=== PATIENT | male | born 1935 | race Caucasian/White ===

== ENCOUNTER → 2025-05-13 11:56 | Outpatient (REF) | payer MEDICARE, SELFPAY | LOC: DHSLP 11:56 | PROVIDERS: ATTENDING PHYSICIAN Internal Medicine Critical Care Medicine; FAMILY PHYSICIAN Family Medicine | DX: G47.33 Obstructive sleep apnea (adult) (pediatric) (principal) | CPT/HCPCS: 95800 ==

== ENCOUNTER → 2025-08-17 14:03 | Outpatient (REF) | payer MEDICARE, SELFPAY | LOC: RAD 14:03 | PROVIDERS: ATTENDING PHYSICIAN Internal Medicine Interventional Cardiology; FAMILY PHYSICIAN Family Medicine | DX: I48.91 Unspecified atrial fibrillation (principal) | CPT/HCPCS: 75572; Q9967 ==

== ENCOUNTER 2025-11-11 19:30 | Inpatient (IN) | payer MEDICARE, SELFPAY ==
[2025-11-11] VITALS (10 sets, daily range): BP systolic 119–139; BP diastolic 55–84; PULSE 2; BMI 32.3
[2025-11-11 16:33] LABS: Hematocrit 27.7 % (39.0-52.0); Hemoglobin 8.9 g/dL (13.0-18.0); Mean Corp Hgb Conc. 32.1 g/dL (33.0-37.0); Mean Corpuscular Volume 95.2 fL (80.0-94.0); Nucleated Red Blood Cells % 0 % (-); Platelet Count 148 10^3/uL (130-400); Red Cell Dist. Width 15.4 % (11.5-14.5)
[2025-11-11 16:47] LABS: INR 1.64; PT 19.1 Sec (11.4-14.6)
--- NOTE | 2025-11-11 16:48 | ED.GENMED ---
History of Present Illness
<Lauryn Enciso PA-C - Last Filed: 11/11/25 19:21>
General
Chief Complaint: Rectal Bleeding
Time Seen by Provider: 11/11/25 15:26
History of Present Illness
History of Present Illness:
Calvin is a 89M with past medical history of A-fib on Eliquis, hypertension, hematuria who presents with new onset of melena that began last evening and has continued throughout the day today. Denies any associated abdominal pain, nausea, vomiting,
lightheadedness, dizziness. Last colonoscopy was less than 2 years ago and showed internal hemorrhoids.
Past History
<Lauryn Enciso PA-C - Last Filed: 11/11/25 19:21>
Past History
ED Past Medical History: Arrthythmia (Atrial fib), Asthma, GERD, HTN, Hypercholesterolemia, Other (pulmonary nodule stable from [id number], pancreatic pseudocyst, prostatic nodule, DAISHA) and Other (hernia)
ED Past Surgical History: Cardiac (CABG 1993), Orthopedic (Right total knee, Bilateral hip replacements, rotator cuff repair), Urological (prostatectomy) and Other (herniorrhaphy)
Social History
Tobacco: Non-smoker
Alcohol: Occasional
Personal:
Living: with family
Family History
Family History: Other (reviewed and non-contributory)
Phy Exam
<Lauryn Enciso PA-C - Last Filed: 11/11/25 19:21>
General Physical Exam
General Presentation: well appearing and no apparent distress
General Skin: warm and dry
General Habitus: normal
General Mental: alert
General Hydration: appears well hydrated
ENT Exam
ENT Exam: EOMI, pharynx normal, neck supple and normocephalic
Eye Exam
Eye Exam: PERRL, cornea clear and conjunctiva normal
Cardiovascular Exam
Cardiovascular Exam: regular rate/rhythm, no edema, no murmur and normal peripheral pulses
Pulmonary Exam
Pulmonary Exam: lungs clear, no respiratory distress, no rales, no crackles, no rhonchi, no stridor, no wheezing and no cough
Gastrointestinal Exam
Gastrointestinal Exam: normal bowel sounds, non tender, soft, no organomegaly, no pulsatile mass and non distended
Neurological Exam
Neurological Exam: alert, oriented x3, no motor deficits and speech normal
Musculoskeletal Exam
Musculoskeletal Exam: full ROM and no edema
Skin Exam
Skin Exam: normal color, warm/dry, no rash and no petechia
Psychiatric Exam
Psychiatric Exam: normal mood/affect
Course
<Lauryn Enciso PA-C - Last Filed: 11/11/25 19:21>
Orders/Labs/Results
Orders:
Orders
11/11/25 10:23
Electrocardiogram (*1) Urgent
Reason for Study: Abdominal Pain
EKG- Treatment ONCE
11/11/25 15:39
Stool for Occult Blood Routine
11/11/25 16:21
Type And Crossmatch [Type+Screen] Urgent
Complete Blood Count/With Diff Urgent
Comprehensive Metabolic Panel Urgent
Ferritin Urgent
Comment: ADD ON
Folate Urgent
Comment: ADD ON
Iron Urgent
Comment: ADD ON
Lipase Urgent
PT/INR [Prothrombin Time] Urgent
Total Iron Binding Urgent
Comment: ADD ON
Vitamin B12 Urgent
Comment: ADD ON
11/11/25 17:10
Pantoprazole [Protonix IV] 80 mg IV NOW STA
11/11/25 18:03
Add On- LAB Urgent
Tests Added?: troponin
11/11/25 18:30
Admit/Transfer Patient As Directed
Co-Sign Provider:
Level of Care: Inpatient admission
Assign to:: Telemetry
Physician / Group: merlin green
Diagnosis: lower gi bleed , anemia, new Rbbb
Reason for Telemetry: Arrhythmia
Date to Stop Telemetry: 11/14/25
Time to Stop Telemetry: 11:00
Reason for Hospitalization: lower gi bleed , anemia, new Rbbb
Expected length of stay greater than two midnights?: Yes
ELOS- Estimated Length of Stay in days: 3
I certify the patient meets the requirements for IP care: Yes
Code Status As Directed
Resuscitation Status: Full Code
11/11/25 18:34
PRN Pain Medication Management As Directed
May give lesser potent ordered pain med per pt: Yes
preference::
Protocol:: Medication orders for pain may be administered in a
manner that supports deferring to patient preference
when the pt is:
- Requesting an ordered lesser potent pain medication.
Least to most potent pain medications are defined
as: acetaminophen < NSAID < tramadol < opioids
(morphine, oxycodone, hydromorphone).
- Requesting a lesser dose of the same medication IF
ORDERED.
- Requesting a less intrusive route of administration
if both routes are prescribed by the provider (PO <
IV).
11/11/25 18:40
CARDIOLOGY CONSULT Routine
Consulting Provider: Gurjit Almanza
Was physician already notified: Yes
Reason for consult: new Rbbb, chroni lbbb ekg changes anemia, gi bleed
GASTROINTESTINAL CONSULT Routine
Consulting Provider: Nelson Johnson
Was physician already notified: Yes
Reason for consult: new Rbbb, chroni lbbb ekg changes anemia, gi bleed
11/11/25 18:42
Add On- LAB Urgent
Tests Added?: iron ferritin tibc folate b12
11/11/25 19:04
Troponin I Urgent
Comment: MUST BE COLLECTED. NO GREEN TOP IN LAB
11/14/25 11:00
DC Protocol for Telemetry ONCE
Abnormal Lab Results
11/11/25
16:21
WBC 3.7 L 10^3/uL
(4.8-10.8)
RBC 2.91 L 10^6/uL
(4.70-6.10)
Hgb 8.9 L g/dL
(13.0-18.0)
Hct 27.7 L %
(39.0-52.0)
MCV 95.2 H fL
(80.0-94.0)
MCHC 32.1 L g/dL
(33.0-37.0)
RDW 15.4 H %
(11.5-14.5)
Absolute Lymphs (auto) 0.7 L 10^3/uL
(1.2-3.4)
Lymphocytes % 19.4 L %
(20.5-51.1)
Monocytes % 9.9 H %
(1.7-9.3)
PT 19.1 H Sec
(11.4-14.6)
11/11/25 16:21
11/11/25 16:21
Vital Signs
Initial and Last Documented VS:
Initial Vital Signs
Temp Pulse Resp BP Pulse Ox
37.2 C 60 16 119/83 99
11/11/25 10:23 11/11/25 10:23 11/11/25 10:23 11/11/25 10:23 11/11/25 10:23
Last Documented Vital Signs
Temp Pulse Resp BP Pulse Ox
36.4 C 68 19 130/61 100
11/11/25 17:42 11/11/25 17:30 11/11/25 17:15 11/11/25 16:08 11/11/25 17:30
<Ed Simmons MD - Last Filed: 11/11/25 17:11>
Orders/Labs/Results
Orders:
Orders
11/11/25 10:23
Electrocardiogram (*1) Urgent
Reason for Study: Abdominal Pain
EKG- Treatment ONCE
11/11/25 15:39
Stool for Occult Blood Routine
11/11/25 16:21
Type And Crossmatch [Type+Screen] Urgent
Complete Blood Count/With Diff Urgent
Comprehensive Metabolic Panel Urgent
Ferritin Urgent
Comment: ADD ON
Folate Urgent
Comment: ADD ON
Iron Urgent
Comment: ADD ON
Lipase Urgent
PT/INR [Prothrombin Time] Urgent
Total Iron Binding Urgent
Comment: ADD ON
Vitamin B12 Urgent
Comment: ADD ON
11/11/25 17:10
Pantoprazole [Protonix IV] 80 mg IV NOW STA
11/11/25 18:03
Add On- LAB Urgent
Tests Added?: troponin
11/11/25 18:30
Admit/Transfer Patient As Directed
Co-Sign Provider:
Level of Care: Inpatient admission
Assign to:: Telemetry
Physician / Group: merlin green
Diagnosis: lower gi bleed , anemia, new Rbbb
Reason for Telemetry: Arrhythmia
Date to Stop Telemetry: 11/14/25
Time to Stop Telemetry: 11:00
Reason for Hospitalization: lower gi bleed , anemia, new Rbbb
Expected length of stay greater than two midnights?: Yes
ELOS- Estimated Length of Stay in days: 3
I certify the patient meets the requirements for IP care: Yes
Code Status As Directed
Resuscitation Status: Full Code
11/11/25 18:34
PRN Pain Medication Management As Directed
May give lesser potent ordered pain med per pt: Yes
preference::
Protocol:: Medication orders for pain may be administered in a
manner that supports deferring to patient preference
when the pt is:
- Requesting an ordered lesser potent pain medication.
Least to most potent pain medications are defined
as: acetaminophen < NSAID < tramadol < opioids
(morphine, oxycodone, hydromorphone).
- Requesting a lesser dose of the same medication IF
ORDERED.
- Requesting a less intrusive route of administration
if both routes are prescribed by the provider (PO <
IV).
11/11/25 18:40
CARDIOLOGY CONSULT Routine
Consulting Provider: Gurjit Almanza
Was physician already notified: Yes
Reason for consult: new Rbbb, chroni lbbb ekg changes anemia, gi bleed
GASTROINTESTINAL CONSULT Routine
Consulting Provider: Nelson Johnson
Was physician already notified: Yes
Reason for consult: new Rbbb, chroni lbbb ekg changes anemia, gi bleed
11/11/25 18:42
Add On- LAB Urgent
Tests Added?: iron ferritin tibc folate b12
11/11/25 19:04
Troponin I Urgent
Comment: MUST BE COLLECTED. NO GREEN TOP IN LAB
11/14/25 11:00
DC Protocol for Telemetry ONCE
Abnormal Lab Results
11/11/25
16:21
WBC 3.7 L 10^3/uL
(4.8-10.8)
RBC 2.91 L 10^6/uL
(4.70-6.10)
Hgb 8.9 L g/dL
(13.0-18.0)
Hct 27.7 L %
(39.0-52.0)
MCV 95.2 H fL
(80.0-94.0)
MCHC 32.1 L g/dL
(33.0-37.0)
RDW 15.4 H %
(11.5-14.5)
Absolute Lymphs (auto) 0.7 L 10^3/uL
(1.2-3.4)
Lymphocytes % 19.4 L %
(20.5-51.1)
Monocytes % 9.9 H %
(1.7-9.3)
PT 19.1 H Sec
(11.4-14.6)
11/11/25 16:21
11/11/25 16:21
Vital Signs
Initial and Last Documented VS:
Initial Vital Signs
Temp Pulse Resp BP Pulse Ox
37.2 C 60 16 119/83 99
11/11/25 10:23 11/11/25 10:23 11/11/25 10:23 11/11/25 10:23 11/11/25 10:23
Last Documented Vital Signs
Temp Pulse Resp BP Pulse Ox
36.4 C 68 19 130/61 100
11/11/25 17:42 11/11/25 17:30 11/11/25 17:15 11/11/25 16:08 11/11/25 17:30
<Lauryn Enciso PA-C - Last Filed: 11/11/25 19:21>
MDM/Problems Addressed
Differential Diagnosis Includes:
Bedside Hemoccult positive. Hemoglobin 8.6 which is relatively stable from his last check as an outpatient on 10/31 when it was 9.2. Patient remains hemodynamically stable with without any complaints of pain. However given new onset of GI bleeding
on anticoagulation will admit to hospital service for further workup and GI evaluation.
<Lauryn Enciso PA-C - Last Filed: 11/11/25 19:21>
*Pulse Oximetry
SaO2: 99
Oxygen Mode of Delivery: Room air
Patient hypoxic: no
*Critical Care Note
Total Time (30-74mins, 75-104mins- exclusive of procedures): Not Applicable
ED Attending Note
<Lauryn Enciso PA-C - Last Filed: 11/11/25 19:21>
-
Portions of this chart may have been created with voice recognition software.� Occasional wrong word or��sound alike� substitutions may have occurred due to the inherent limitations of voice recognition software.
<Ed Simmons MD - Last Filed: 11/11/25 17:11>
ED Attending Note
Patient seen and examined by attending physician: Yes
ED Attending Note:
I have seen and evaluated the patient with a [id number] encounter. I have spoken to the advance practicer provider and involved in the medical history, the physical exam, medical decision making.
Evaluation and management service: agree unless noted differently below.
Results interpretation: agree unless noted differently below.
Focused HPI: 89-year-old male with a past medical history as noted significant for A-fib on Xarelto who presents to the ER for evaluation of rectal bleeding. Patient reports onset of symptoms yesterday of dark black to maroon stools. He says he
had 1 episode last night, woke up with stool on him this morning and had another episode this morning so at least 3 episodes of rectal bleeding. He feels a bit weak but denies shortness of breath or lightheadedness, denies any chest pain. He has
not had any vomiting. It sounds like he had a history of some bright red blood per rectum in the distant past and was seen at [facility] and he says that he has chronic hematuria and is planning to get a watchman so that he can come off of the
Xarelto. He says his last colonoscopy was about a year ago, cannot recall prior endoscopies.
Physical exam: Awake and alert, nontoxic. Vital signs are normal. Abdomen nontender. On rectal exam he has black stool Hemoccult positive.
Medical Decision Makin-year-old male presents with rectal bleeding�dark stools times least 3 episodes. He is on Xarelto for history of A-fib. He is hemodynamically stable. Hemoccult positive here. No heavy bleeding here. His hemoglobin is
8.9 today which is essentially stable. Will plan to start PPI. Hold Xarelto for now but no indication for emergent reversal. Monitor bleeding and trend hemoglobin. Admit for continued care. PA discussed with hospitalist.
Discharge Plan
Departure
Patient Disposition: Admit
Date of Disposition: 11/11/25
Time of Disposition: 16:57
Presentation/result/management discussed w/ accepting MD/DO: Hospitalist
Discharge Problem:
Melena, Acute GI bleeding, Anemia
Prescriptions:
No Action
montelukast 10 MG tablet
10 mg PO HS
Xarelto 20 MG tablet
20 mg PO QPM
Dupixent Pen 300 MG/2 ML pen injector
300 mg SC Q2W
duloxetine 30 mg capsule,delayed release(DR/EC)
30 mg PO DAILY
atorvastatin 40 mg tablet
40 mg PO QPM
lisinopril [Zestril] 2.5 mg tablet
2.5 mg PO QPM
pantoprazole [Protonix] 20 mg Tablet,Delayed Release (Dr/Ec)
20 mg PO DAILY
ferrous sulfate 325 mg (65 mg iron) Tablet
325 mg PO DAILY
folic acid 1 mg Tablet
1 mg PO DAILY
furosemide [Lasix] 20 mg Tablet
40 mg PO BID
Breztri Aerosphere 160-9-4.8 mcg/actuation Hfa Aerosol Inhaler
2 inh INHALATION R BID
metoprolol succinate 100 mg tablet extended release 24 hr
100 mg PO BID
Referrals:
Jason Irwin MD [Family Provider, Family Practice]
Interventions
Interventions:
*General Assessment Last Done: 11/11/25 16:10
*Neglect/Abuse Screening Last Done: 11/11/25 10:23
*ED COVID-19 Vaccine History Last Done: 11/11/25 16:10
*ED Influenza Vaccine History Last Done: 11/11/25 16:10
[facility] Fall Risk Assessment Tool Last Done: 11/11/25 16:12
*Risk Screen - Suicide (C-SSRS) Last Done: 11/11/25 10:23
RD-Dxglub-Zwgqvysary Assessment Last Done: 11/11/25 16:30
ED- Cardiac Assessment Last Done: 11/11/25 16:30
ED- Pulmonary Assessment Last Done: 11/11/25 16:30
Discharge Date and Time
Print Language: HEBREW
[2025-11-11 16:56] LABS: ALT (SGPT) 10 U/L (0-50); AST (SGOT) 17 U/L (17-59); Albumin 3.5 g/dl (3.5-5.0); Alkaline Phosphatase 103 U/L (38-126); Blood Urea Nitrogen 19 mg/dl (9-20); Calcium 9.0 mg/dl (8.4-10.2); Carbon Dioxide 26 mmol/L (22-30); Chloride 106 mmol/L (98-107); Estimated Creatinine Clearance 58 ml/min; Glucose 96 mg/dl (70-99); Lipase 37 U/L (23-300); Potassium 4.2 mmol/L (3.5-5.1); Sodium 138 mmol/L (135-145); Total Protein 6.8 g/dl (6.3-8.2); eGFR > 60.00
[2025-11-11] MEDS: PROTONIX IV 80 MG IV (17:29)
--- NOTE | 2025-11-11 17:53 | HPS.HSE ---
Family Physician
-
Family Physician: Jason Irwin
Chief Complaint
-
black stool x2 days
History of Present Illness
89-year-old male from [facility] where he moved in on 11/12/2025. He reports he has had rectal bleeding x 2 days black in color. He is on Xarelto for A-fib. The pt States he had Some rectal bleeding about 1 year ago that was
contributed to hemorrhoids. He denies any recent colonoscopy. The patient denies chest pain, palpitations, shortness of breath, dizziness, headache, fever, chills, abdominal pain, nausea, vomiting, diarrhea, urinary symptoms. Medical history
includes CHF, CAD/CABG 1993, HLD, asthma, ex-smoker, sleep apnea/CPAP 08/31, GERD, osteoarthritis, radical prostatectomy 1996, chronic bilateral leg lymphedema
Medical History
Past Medical History
Past Medical History: Reports Other (atrial fibrillation on Xarelto, CAD, CHF, hyperlipidemia, GERD, COPD, sleep apnea on BIPAP, history of prostate CA with prostatectomy)
Past Surgical History: Reports Orthopedic (hip replacement) and Urological ( prostatectomy)
Social History
Tobacco: Non-smoker
Alcohol: None
Personal:
Living: With Family
Family History
Family History: Not pertinent
Allergies / Home Medications
Allergies reflects when Allergies were last updated in [employer].
Home Medications with original date entered in [employer]
Allergy/Medication List:
Allergies
Allergy/AdvReac Type Severity Reaction Status Date / Time
acetaminophen (From Tylenol) Allergy Itching Verified 11/11/25 16:05
morphine (Morphine) Allergy massive Verified 11/11/25 10:22
outbreak
of hives &
itching
Home Medications
montelukast 10 mg tablet 10 mg PO HS Lung/breathing issues 01/02/12
dupilumab 300 mg/2 mL subcutaneous pen injector (Dupixent) 300 mg SC Q2W ASTHMA 06/07/21
rivaroxaban 20 mg tablet (Xarelto) 20 mg PO QPM Blood clot prevention/tx 06/07/21
duloxetine 30 mg capsule,delayed release 30 mg PO DAILY Mental Health/Anxiety 06/27/22
atorvastatin 40 mg tablet 40 mg PO QPM High cholesterol 01/24/23
lisinopril 2.5 mg tablet (Zestril) 2.5 mg PO QPM Blood pressure 01/24/23
budesonide 160 mcg-glycopyr 9 mcg-formot 4.8 mcg/actuation HFA inhaler (Breztri Aerosphere) 2 inh inhalation R BID Lung/Breathing Issues 11/11/25
ferrous sulfate 325 mg (65 mg iron) tablet 325 mg PO DAILY Supplement 11/11/25
folic acid 1 mg tablet 1 mg PO DAILY Supplement 11/11/25
furosemide 20 mg tablet (Lasix) 40 mg PO BID Fluid Retention/Swelling 11/11/25
metoprolol succinate 100 mg tablet,extended release 24 hr 100 mg PO BID Heart Disease/Condition 11/11/25
pantoprazole 20 mg tablet,delayed release (Protonix) 20 mg PO DAILY Gastrointestinal Issue 11/11/25
Review of Systems
-
History Source: Patient
A 12 point ROS was completed and negative except as noted: Yes
Constitutional: Denies Fever or Chills
EENT: Denies Sore Throat or Runny Nose
Respiratory: Denies Cough or Trouble Breathing
Cardiac: Denies Chest Pain, Palpitations or Syncope
Abdomen/GI: Reports Black Stools (x 2 days ); Denies Abdominal Pain, Nausea, Vomiting, Diarrhea, Constipated or Bloody Stools
: Denies Dysuria, Frequency, Flank Pain or Incontinence
Musculoskeletal: Reports Edema (bilat leg Lymphedema +2 ); Denies Joint Pain
Skin: Denies Itching or Rash
Neurological: Denies Dizzy, Headache or Weakness
Endocrine: Reports No Symptoms
Hematologic/Lymphatic: Reports No Symptoms
Psych: Reports Calm
Physical Exam
Vital Signs
Vital Signs
Temp Pulse Resp BP Pulse Ox
97.6 F 68 19 130/61 100
11/11/25 17:42 11/11/25 17:30 11/11/25 17:15 11/11/25 16:08 11/11/25 17:30
Physical Exam
General: No Fever or Chills
HEENT: NormoCephalic, Anicteric, PERRLA, [place] Conjunctivae and No Ptosis
Respiratory: Clear
Cardiac: S1/S2, Murmur (sys 2/6 murmur) and Peripheral Edema (bilat legs +2 from knees to feet ); No Rub or Gallop
Breast: Deferred by me
GI: Soft, Non Tender, Non Distended, Normal Bowel Sounds and No Hepatosplenomegaly
Rectal: Hem Positive (per ER provider)
Genito-urinary: Deferred by me
Musculoskeletal: No Clubbing, No Cyanosis, Edema, Left Lower Extremity (bilat legs +2 from knees to feet ) and Edema, Right Lower Extremity (bilat legs +2 from knees to feet ); No Edema, Left Upper Extremity or Edema, Right Upper Extremity
Skin: Warm and Dry; No Rash
Neuro: AO x 3, No Motor Deficits, Nonfocal/grossly intact, Cranial Nerves Intact and No Sensory Deficits; No Slurred Speech, Facial Droop, Tremors or Sedated
Psych: Calm
Laboratory Results
-
11/11/25 16:21
11/11/25 16:21
Laboratory Results
PT 19.1 Sec (11.4-14.6) H 11/11/25 16:21
INR 1.64 11/11/25 16:21
Total Bilirubin 0.7 mg/dl (0.2-1.3) 11/11/25 16:21
AST 17 U/L (17-59) 11/11/25 16:21
ALT 10 U/L (0-50) 11/11/25 16:21
Alkaline Phosphatase 103 U/L (38-126) 11/11/25 16:21
Troponin I Cancelled 11/11/25 10:23
Lipase 37 U/L (23-300) 11/11/25 16:21
Data Reviewed
-
Lab Data: Labs Reviewed by me
Impression/Plan
-
Impression/plan:
Admit to telemetry
#Rectal bleeding with anemia concern for lower GI bleed
#GERD
#Hemorrhoids 1 year ago with rectal bleeding no colo
Bedside Hemoccult positive ER
Hgb 8.9 was 9.2 on outpatient labs on 10/31
-Type and screen
-blood consent obtained and scanned to chart
-Consult GI
-protonix 80 mg given in ER
- Hold Xarelto
npo except sips and meds
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
#Cardiac murmur
No current symptoms
-check troponin
- check Echo
- consult [facility] cardiology
-- get old records from [facility]
#A-fib- permanent
- Hold Xarelto
-Continue metoprolol succinate 100 mg twice daily with hold parameters
- EKG : Afib 73 bpm, Bifasciular block qtc 511 ms T wave inversion anterior leads
#HTN
BP 130/61
cont Metoprolol succ 100 mg bid, Lasix 80 mg bid
hold , Lisinopril 2.5 mg qpm
#CHF with chronic bilateral leg lymphedema
I/o daily weight
cont Lasix 80 mg bid
#CAD/CABG 1993
- cont BB, Statin
#Asthma
cont dupixent q2 weeks , Breztri inhaler, Singulari 10 mg hs
#Anxiety
cont Duloxetine 30 mg daily
#ex-smoker
#Sleep apnea/CPAP 08/31
Other PMH:
osteoarthritis
radical prostatectomy 1996
DVT proph
scd's hold Xarelto
Full code per pt wants sophie Cole to decide
--- NOTE | 2025-11-11 18:01 | W.PN.UPDATE ---
Update Note
Progress Note Update
This note serves as an addendum to the H&P by float operator Marisol Boyd
HPI
89M Ex smoker, Res of [facility] where he moved in on 11/12/2025
PMHX : Per AF on Xarelto, chr HFrEF, CAD, CABG, DAISHA, /CPAP 08/31, radical prostatectomy 1996
- reports acute rectal bleeding x 2 days
- on chr Xarelto for Perm AF
Relevant VS
Temp Pulse Resp BP Pulse Ox
97.6 F 68 19 130/61 100
11/11/25 17:42 11/11/25 17:30 11/11/25 17:15 11/11/25 16:08 11/11/25 17:30
PE
Gen: NAD
HEENT: anicteric
Neck: supple
Lungs: CTA
Cor: irregular rhythm, loud pansystolic SM
Abdomen:�soft NT NG NRT
SHELLIE: HoB POS stool per ER AP
DIGITAL MEDIA DESIGNER: AAO3 NFND
MS: no edema
Relevant data�
11/11/25 11/11/25
16:21 18:05
WBC 3.7 L
Hgb 8.9 L
Plt Count 148
INR 1.64
BUN 19
Creatinine 1.1
Estimated Creat Clear 58
eGFR > 60.00
Troponin I Pending
EKG report
ATRIAL FIBRILLATION WITH PREMATURE VENTRICULAR OR ABERRANTLY CONDUCTED COMPLEXES
RIGHT BUNDLE BRANCH BLOCK
LEFT ANTERIOR FASCICULAR BLOCK
BIFASCICULAR BLOCK
ABNORMAL ECG
WHEN COMPARED WITH ECG OF 30-Jan-2023 21:52,(RBBB AND LEFT ANTERIOR FASCICULAR BLOCK) HAS REPLACED LEFT BUNDLE BRANCH BLOCK
10/12/22 ECHO
1. Moderately reduced LV systolic function with estimated LVEF of 35 to 40% by visual estimation. There is global hypokinesis with regional variation. Left ventricular wall thickness is normal with mild left ventricular dilatation. Diastolic
function is indeterminate.
2. Normal right ventricular size and function.
3. Left atrial enlargement.
4. Mitral annular calcification with mild mitral regurgitation.
5. Thickened trileaflet aortic valve with normal excursion without aortic stenosis. Trace aortic regurgitation.
6. Mild tricuspid regurgitation with estimated pulmonary artery pressure of 28 mmHg, assuming a right atrial pressure of 3 mmHg.
7. No pericardial effusion.
8. Compared to previous echocardiogram on June 28, 2022, left ventricular systolic function appears mildly improved.
9. Technically difficult study
Last hospitalist admission: 01/24/2023 - 01/31/2023
PDXs
1. Mechanical fall leading on to right hip periprosthetic fracture
status post open reduction internal fixation (ORIF) on 01/26/2023.
2. Acute anemia on chronic anemia secondary to acute blood loss with two units packed red blood cell (PRBC) transfusion.
3. Intermittent gross hematuria under Urology care.
4. Multidrug resistant E coli urinary tract infection which was treated with ertapenem.
ASSESSMENT & PLAN
Acute rectal bleeding
HoB POS Black stool GIB - upper vs lower GI origin
Associated presumed ACDz: Hgb 8.9 was 9.2 on outpatient labs on 10/31
No abdominal oan, No N/V
HX chr Xarelto for Per AF
Denied use of NSAIDs
GERD HX
- T & S , blood consent obtained at ER
- NPO except sips of clear and ice chips
- IV PPI
- Hold Xarelto
- Trend Hgb
- GI consulted
NEW RBBB- uncertain chronicity
OLD LBBB
Abnormal EKG
Remote HX seeing P Card at [facility] - but no longer FU with Card at [facility]
- check TPNI
- Repeat TTE for new WMAL
- [facility] card consult
Loud lopez systolic murmur at Lt USB - progressive MR ?
- await TTE
- await Card evaluate
HX Chronic HFeEF - last TTE 06/28/2022 with EF 25 to 30%, global hypokinesis, Aortic sclerosis without stenosis, moderate MR, trace AI
Chr b/l Herman edema
BP 130/61
- Clinically euvolemic currently.
- c/w FILTERS ASSEMBLER PO Lasix
HX CAD s/p CABG (HARDWICK to LAD, SVG to OM) 1994
Permanent AF
- rate controlled with Metoprol XL 100 BID
- Hold Xarelto due to GIB
Essential hypertension
- c/w metoprolol XL
- hold low dose lisinopril
HX COPD
- c/w FILTERS ASSEMBLER Rx on Dulera, Dupixent, Singulair
HX DAISHA
- c/w FILTERS ASSEMBLER BiPAP at 08/31
Dyslipidemia
- on statin
HX prostate carcinoma status post total prostatectomy.
Arthritis with physical limitations
HX TME
DVT Px: SCD
Full code
IP TLM
[2025-11-11 19:24] LABS: Iron 49 ug/dl (49-181)
[2025-11-11 19:33] LABS: Total Iron Binding Capacity 303 ug/dl (261-462)
[2025-11-11 19:41] LABS: Troponin I 0.033 ng/ml
[2025-11-11 20:00] LABS: Ferritin 29.1 ng/ml (17.9-464.0)
[2025-11-11] MEDS: SYMBICORT 160/4.5 MCG INHALER 2 PUFF INH (20:14)
[2025-11-11 20:31] LABS: Folate > 20.0 ng/ml (2.76-20); Vitamin B12 979 pg/ml (239-931)
[2025-11-11] MEDS: LASIX 40 MG PO (20:34)
[2025-11-11] MEDS: TOPROL XL 100 MG PO (20:34)
[2025-11-11] MEDS: SINGULAIR 10 MG PO (20:35)
[2025-11-12] VITALS (19 sets, daily range): BP systolic 114–153; BP diastolic 59–107; PULSE 2–66
[2025-11-12 01:41] LABS: Troponin I 0.042 ng/ml
[2025-11-12 05:27] LABS: Hematocrit 26.9 % (39.0-52.0); Hemoglobin 8.6 g/dL (13.0-18.0); Mean Corp Hgb Conc. 32.0 g/dL (33.0-37.0); Mean Corpuscular Volume 96.4 fL (80.0-94.0); Nucleated Red Blood Cells % 0 % (-); Platelet Count 156 10^3/uL (130-400); Red Cell Dist. Width 15.4 % (11.5-14.5)
[2025-11-12 05:49] LABS: ALT (SGPT) < 10 U/L (0-50); AST (SGOT) 17 U/L (17-59); Albumin 3.4 g/dl (3.5-5.0); Alkaline Phosphatase 101 U/L (38-126); Blood Urea Nitrogen 18 mg/dl (9-20); Calcium 9.0 mg/dl (8.4-10.2); Carbon Dioxide 25 mmol/L (22-30); Chloride 107 mmol/L (98-107); Estimated Creatinine Clearance 58 ml/min; Glucose 89 mg/dl (70-99); HDL Cholesterol 33 mg/dl; LDL Cholesterol, Calculated 66 mg/dl; Magnesium 2.2 mg/dl (1.6-2.3); Potassium 3.6 mmol/L (3.5-5.1); Sodium 140 mmol/L (135-145); Total Protein 6.5 g/dl (6.3-8.2); Very Low Density Lipoprotein 13 mg/dl (0-30); eGFR > 60.00
[2025-11-12 06:04] LABS: Troponin I 0.041 ng/ml
[2025-11-12] MEDS: SYMBICORT 160/4.5 MCG INHALER 2 PUFF INH ×2 (08:22→20:07)
[2025-11-12] MEDS: SPIRIVA RESPIMAT 2.5 MCG 2 PUFF INH (08:22)
--- NOTE | 2025-11-12 08:44 | CON.CAR ---
Addendum entered and electronically signed by Edgar Andres MD 11/12/25 12:24:
I saw and examined the patient.
The Journal Clerk's note was reviewed and I agree with the note.
Comment: Briefly, 89-year-old man past medical history of primary atrial fibrillation on results of Xarelto and intermittent hematuria plan for watchman implant who presents with suspected GI bleed. Patient tells me that he has had copious dark
stool over the last 2 days. Hemoglobin has trended down to 8.6 this morning concerning for GI bleed.
Agree with holding Xarelto in the setting of acute GI bleed and resuming once safe from gastroenterology perspective
Patient appears volume overloaded on exam with significant lower extremity edema
proBNP is elevated at 3940
Would continue IV Lasix twice daily as ordered
Follow renal function and electrolytes. Ideally would have standing weights daily.
Troponin elevation noted peaking at 0.042
No need to trend further
Patient is not reporting any chest discomfort and ECG does not appear acutely ischemic
Suspect nonischemic myocardial injury troponin elevation
Rest per Malou Gan
Original Note:
Consultation
Consultation Request
Date/Time Consultation Performed: 11/12/25
Requesting Provider: Dr. Eid
Performing Provider: Malou Gan PA-C for Dr. Andres
Reason for Consultation: GI bleed on xarelto
Medical History
-
Chief Complaint: dark stools
History of Present Illness:
Patient is an 89-year-old male with past medical history of permanent atrial fibrillation on Xarelto, hypertension, hyperlipidemia, CAD with history of CABG, who due to intermittent issues with hematuria felt to be secondary to prior radiation for
prostate cancer has been planned for Watchman on 12/01/2025. He presented to [facility] ER due to dark stools noted over the last 2 days. States he feels tired and weak. Denies CP, SOB. Unsure of LE edema, but legs appear edematous. On po laisx 40mg BID.
Cardiology consulted for evaluation.
PMH:
Chronic HFrEF
Permanent atrial fibrillation
Chronic OAC with Xarelto
Issues with intermittent hematuria secondary to prior radiation for prostate cancer, planned for Watchman 12/01/2025
CAD with h/o CABG x2 HARDWICK to LAD, SVG to OM1 02/1995
Ischemic CM
Mod MR
HTN
HLD
CKD
COPD
Past Medical History
Past Medical History: Other (in HPI)
Past Surgical History: Other (prostatectomy, hernia, bilateral knee replacement, R hip replacement)
Social History
Tobacco: Former Smoker
Alcohol: None
Drug: None
Personal:
Living: With Family
Employment: Retired
Family History
Family History: CAD and Cancer
Allergies / Home Medications
Allergy/AdvReac Type Severity Reaction Status Date / Time
acetaminophen (From Tylenol) Allergy Itching Verified 11/11/25 16:05
morphine (Morphine) Allergy massive Verified 11/11/25 10:22
outbreak
of hives &
itching
�Medication �Instructions �Recorded �Confirmed �Type
montelukast 10 mg tablet 10 mg PO HS Lung/breathing issues 01/02/12 11/11/25 History
dupilumab 300 mg/2 mL subcutaneous 300 mg SC Q2W ASTHMA 06/07/21 11/11/25 History
pen injector (Dupixent)
rivaroxaban 20 mg tablet (Xarelto) 20 mg PO QPM Blood clot 06/07/21 11/11/25 History
prevention/tx
duloxetine 30 mg capsule,delayed 30 mg PO DAILY Mental 06/27/22 11/11/25 History
release Health/Anxiety
atorvastatin 40 mg tablet 40 mg PO QPM High cholesterol 01/24/23 11/11/25 History
lisinopril 2.5 mg tablet (Zestril) 2.5 mg PO QPM Blood pressure 01/24/23 11/11/25 History
budesonide 160 mcg-glycopyr 9 2 inh inhalation R BID 11/11/25 11/11/25 History
mcg-formot 4.8 mcg/actuation HFA Lung/Breathing Issues
inhaler (Breztri Aerosphere)
ferrous sulfate 325 mg (65 mg 325 mg PO DAILY Supplement 11/11/25 11/11/25 History
iron) tablet
folic acid 1 mg tablet 1 mg PO DAILY Supplement 11/11/25 11/11/25 History
furosemide 20 mg tablet (Lasix) 40 mg PO BID Fluid 11/11/25 11/11/25 History
Retention/Swelling
metoprolol succinate 100 mg 100 mg PO BID Heart 11/11/25 11/11/25 History
tablet,extended release 24 hr Disease/Condition
pantoprazole 20 mg tablet,delayed 20 mg PO DAILY Gastrointestinal 11/11/25 11/11/25 History
release (Protonix) Issue
Review of Systems
-
History Source: Patient
All other systems: Negative unless noted
Physical Exam
Vital Signs
Temp Pulse Resp BP Pulse Ox
97.6 F 75 24 114/69 96
11/12/25 03:15 11/12/25 08:27 11/12/25 08:27 11/12/25 08:00 11/11/25 20:16
Lab Results
11/12/25 05:07
11/12/25 05:07
Troponin I 0.041 ng/ml H* 11/12/25 05:07
Physical Exam
General: No Apparent Distress, Comfortable and Other (lethargic)
HEENT: Normocephalic, Anicteric and Moist Mucous Membranes
Respiratory: Clear and Non Labored Respirations
Cardiac: S1/S2, Irregular Rhythm and Murmur
GI: Soft, Non Tender, Non Distended and Normal Bowel Sounds
Musculoskeletal: No Clubbing, No Cyanosis and Edema (2+ of B/L LE)
Skin: Warm and Dry
Neuro: AO x 3
Impression / Plan
-
Primary Clinical Services Professional: Dr. Eldridge
Assessment:
Presentation with dark stools
Anemia
Concern for GI bleed
Suspected acute on chronic HFrEF
Elevated troponin, suspected nonischemic myocardial injury
Permanent atrial fibrillation
Chronic OAC with Xarelto
Issues with intermittent hematuria secondary to prior radiation for prostate cancer, planned for Watchman 12/01/2025
CAD with h/o CABG x2 HARDWICK to LAD, SVG to OM1 02/1995
Ischemic CM
Mod MR
HTN
HLD
CKD
COPD
ECHO 01/30/2025 at [facility]: EF 45 to 50%, moderate MR
Plan:
- Patient presents with dark stools x 2 days.
- With evidence of acute on chronic anemia, hemoglobin 8.6
- GI consulted for evaluation
- Holding outpatient Xarelto
- tentatively planned for watchman procedure 12/01/25 at . have notified watchman team of patient
- proBNP pending. with evidence of B/L LE edema. agree with IV lasix. Cr 1.1 on 11/12. was on po lasix 40mg BID prior to admission
- trop mildly elevated but flat in 0.04 range. no CP. suspected nonischemic myocardial injury. EKG rate controlled afib with PVCs and bifascicular block
- d/w hospitalist resident
Data Reviewed
-
EKG: Tracing Personally Visualized and interpreted
Medical Tests (Nuc Med, Echo etc): Report Reviewed by me
Labs: Labs Reviewed by me
Old Records: Reviewed
[2025-11-12] MEDS: NSS (PRESERVATIVE FREE) 10 ML IV ×2 (10:05→19:46)
[2025-11-12] MEDS: LASIX 40 MG PO ×2 (10:06→16:55)
[2025-11-12] MEDS: CYMBALTA DELAYED RELEASE 30 MG PO (10:06)
[2025-11-12] MEDS: PROTONIX IV 40 MG IV ×2 (10:06→19:46)
[2025-11-12] MEDS: TOPROL XL 100 MG PO ×2 (10:06→19:45)
[2025-11-12 11:51] LABS: Troponin I 0.041 ng/ml
--- NOTE | 2025-11-12 15:29 | CON.GI ---
Consultation
-
Date/Time Consultation Requested: 11/11/25 6:39pm
Date/Time Consultation Performed: 11/12/25 3:30pm
Requesting Provider: Natalie Boyd
Performing Provider: Nelson Johnson
Reason for Consultation: Melena
Medical History
Chief Complaint / HPI
Chief Complaint: Melena
History of Present Illness:
89yo male presents with black stools for 2 days. Denies abd pain. Stool black heme positive in ER. Takes NSAIDs rarely for leg pain. He is on xarelto but did not take meds last couple days, last dose maybe 3 days ago. He had ECG changes so
Cardiology was consulted. Last colonoscopy couple years ago at [place] - [facility]. Denies prior EGD.
Past Medical History
Past Medical History: Arrhythmias (A fib.), Asthma and HTN
Past Surgical History: Orthopedic (R TKR, B/L THR)
Social History
Tobacco: Former Smoker
Alcohol: Occasional
Family History
Family History: Reviewed & Not Pertinent
Allergies / Home Medications
Allergy/AdvReac Type Severity Reaction Status Date / Time
acetaminophen (From Tylenol) Allergy Itching Verified 11/11/25 16:05
morphine (Morphine) Allergy massive Verified 11/11/25 10:22
outbreak
of hives &
itching
�Medication �Instructions �Recorded
montelukast 10 mg tablet 10 mg PO HS Lung/breathing issues 01/02/12
dupilumab 300 mg/2 mL subcutaneous 300 mg SC Q2W ASTHMA 06/07/21
pen injector (Dupixent)
rivaroxaban 20 mg tablet (Xarelto) 20 mg PO QPM Blood clot 06/07/21
prevention/tx
duloxetine 30 mg capsule,delayed 30 mg PO DAILY Mental 06/27/22
release Health/Anxiety
atorvastatin 40 mg tablet 40 mg PO QPM High cholesterol 01/24/23
lisinopril 2.5 mg tablet (Zestril) 2.5 mg PO QPM Blood pressure 01/24/23
budesonide 160 mcg-glycopyr 9 2 inh inhalation R BID 11/11/25
mcg-formot 4.8 mcg/actuation HFA Lung/Breathing Issues
inhaler (Breztri Aerosphere)
ferrous sulfate 325 mg (65 mg 325 mg PO DAILY Supplement 11/11/25
iron) tablet
folic acid 1 mg tablet 1 mg PO DAILY Supplement 11/11/25
furosemide 20 mg tablet (Lasix) 40 mg PO BID Fluid 11/11/25
Retention/Swelling
metoprolol succinate 100 mg 100 mg PO BID Heart 11/11/25
tablet,extended release 24 hr Disease/Condition
pantoprazole 20 mg tablet,delayed 20 mg PO DAILY Gastrointestinal 11/11/25
release (Protonix) Issue
Review of Systems
-
All other systems: A 12 pt ROS was Negative except as stated above in HPI
Vital Signs
Temp Pulse Resp BP Pulse Ox
98.2 F 67 24 135/63 94
11/12/25 08:15 11/12/25 10:06 11/12/25 08:27 11/12/25 10:06 11/12/25 08:15
Physical Exam
Exam
General: No Apparent Distress
HEENT: Normocephalic and Atraumatic
Respiratory: Non Labored Respirations
GI: Soft, Non Tender and Non Distended
Results
WBC 3.3 10^3/uL (4.8-10.8) L 11/12/25 05:07
Hgb 8.6 g/dL (13.0-18.0) L 11/12/25 05:07
Hct 26.9 % (39.0-52.0) L 11/12/25 05:07
MCV 96.4 fL (80.0-94.0) H 11/12/25 05:07
Plt Count 156 10^3/uL (130-400) 11/12/25 05:07
Absolute Neuts (auto) 2.3 10^3/uL (1.4-6.5) 11/12/25 05:07
PT 19.1 Sec (11.4-14.6) H 11/11/25 16:21
INR 1.64 11/11/25 16:21
Sodium 140 mmol/L (135-145) 11/12/25 05:07
Potassium 3.6 mmol/L (3.5-5.1) 11/12/25 05:07
Chloride 107 mmol/L (98-107) 11/12/25 05:07
Carbon Dioxide 25 mmol/L (22-30) 11/12/25 05:07
BUN 18 mg/dl (9-20) 11/12/25 05:07
Creatinine 1.1 mg/dL (0.7-1.3) 11/12/25 05:07
Calcium 9.0 mg/dl (8.4-10.2) 11/12/25 05:07
Total Bilirubin 0.8 mg/dl (0.2-1.3) 11/12/25 05:07
AST 17 U/L (17-59) 11/12/25 05:07
ALT < 10 U/L (0-50) 11/12/25 05:07
Alkaline Phosphatase 101 U/L (38-126) 11/12/25 05:07
Lipase 37 U/L (23-300) 11/11/25 16:21
Diagnostic Image Results:
Prior GI Procedures:
EGD:
Colonoscopy:
Assessment / Plan
-
Summary: 89yo male presents with 2 days black stools, heme positive in ER. On xarelto for Afib, last dose couple days ago. Takes rare NSAIDs for leg pain. Gets colonoscopies at [facility], last couple years ago. No prior EGD. Hgb 8.9 on admission and
rpt stable 8.6. Baseline 9-10 range. Cardiology consulted for ECG changes, trop peak 0.042, suspect nonischemic myocardial injury.
Impression:
Melena
Afib on xarelto last dose 11/10
Mild drop in Hgb to 8.6 from baseline 9-10 range
Recommendations:
Protonix BID ok for now
Discussed with Cardiology. OK to proceed with EGD tomorrow
NPO p MN. OK for clears now
DDx PUD, ectasia
-
-
Thank you for consultation and allowing me to participate in the patient's care. Please call the education and outreach coordinator GI physician during the after hours with any questions or concerns.
[2025-11-12] MEDS: LIPITOR 40 MG PO (16:55)
--- NOTE | 2025-11-12 16:55 | W.PN.HOSP.TC ---
Addendum entered and electronically signed by Dami Eid MD 11/12/25 21:46:
Attending Addendum-
I saw and evaluated the patient. I reviewed the resident�s note and agree with findings and plan as documented in the resident�s note. Sub: Having black tarry stools. Feels fatigued. Denies CP palps abd pain NV. Full 12 point ROS reviewed and
negative except as documented Exam: Vitals reviewed in chart GEN-NAd heart irreg irreg SM @ RUSB, lungs clear no W/R/R Abd soft NT ND pos BS Le 2+ non pitting edema
Plan:
#Acute GI Bleed
- melena
- Bedside Hemoccult positive ER
- Hgb trending down
- Type and screen
- blood consent obtained and scanned to chart
- GI input appreciated- for EGD in am
- cont protonix IV BID
- Hold Xarelto
- NPOpMN
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
#Cardiac murmur
No current symptoms
-trend troponin
-Echo
1. Left ventricular ejection fraction is normal with an ejection fraction of 56 % by Street's biplane method of discs.
2. Right ventricular size and systolic function are within normal limits.
3. Aortic sclerosis without stenosis.
4. Mild to moderate mitral valve regurgitation.
5. Mild to moderate tricuspid regurgitation. Estimated pulmonary artery pressure of 51 mmHg assuming a right atrial pressure of 8 mmHg.
6. Bilateral pleural effusion is noted.
7. Compared to prior study dated 10/12/2022, left ventricular systolic function was previously moderately reduced with LVEF 35-40%.
- appreciate cardiology input
#A-fib- permanent
- Hold Xarelto
- Continue metoprolol succinate hold parameters
- eventual watchman 11/17
#HTN
cont Metoprolol succ 100 mg bid, Lasix 80 mg bid
hold , Lisinopril 2.5 mg qpm
#HFimpEF
-repeat echo with ef from 35-40%->56%
-cont GDMT-toprolXL, lisinopril, SGLTi2, not on MRA
-cont PO lasix
#CAD/CABG 1993
- cont metoprolol and atorvastatin
#Asthma
cont dupixent q2 weeks , Breztri inhaler, Singulari 10 mg hs
#Anxiety
cont Duloxetine 30 mg daily
#ex-smoker
#Sleep apnea/CPAP 08/31
Other PMH:
osteoarthritis
radical prostatectomy 1996
DVT proph
scd's hold Xarelto
ACP
Patient consented to discuss, was alone, time spent explanation of advance directives, changes in health status, patient�s health care wishes if the patient becomes unable to make health decisions, goals of care, code status, and prognosis- 16
minutes
Time spent coordinating care, review of plan of care with resident, personally reviewed previous records in EMR, med rec, labs, radiology, d/w nursing, family total time documented is exclusive of any additional time listed that was spent in advance
care planning discussion -�52 minutes
Original Note:
Today's Communication/Plan
-
-spoke with his daughter Anne and updated her regarding her father plan and updates
-Echo don today
-plan for EGD tomorrow
-continue hold Xarelto
-continue Protonix 40 mg BID IV
-continue Lsix 40 mg BID po
Assessment / Plan
Assessment / Plan
89-year-old male from [facility] where he moved in on 11/12/2025. He reports he has had rectal bleeding x 2 days black in color. He is on Xarelto for A-fib. The pt States he had Some rectal bleeding about 1 year ago that was
contributed to hemorrhoids. He denies any recent colonoscopy. The patient denies chest pain, palpitations, shortness of breath, dizziness, headache, fever, chills, abdominal pain, nausea, vomiting, diarrhea, urinary symptoms. Medical history
includes CHF, CAD/CABG 1993, HLD, asthma, ex-smoker, sleep apnea/CPAP 08/31, GERD, osteoarthritis, radical prostatectomy 1996, chronic bilateral leg lymphedema
11/12/2025: I spoke with his daughter Anne and updated who stated that he had multiple hematuria with his hx of prostate cancer the spray operator scheduled him for watchman procedure to be done on 12/30/2025 to be off Xarelto. she stated that two days
ago had black stool but yesterday was a maroon colored stool.
Plan:
Admit to telemetry
#Rectal bleeding with anemia concern for lower GI bleed
-Hx of GERD
-Hx of Hemorrhoids 1 year ago with rectal bleeding, last colonscopy was several years ago at [place] with polyps
-Bedside Hemoccult positive ER
-rectal exam , black stool
-Hgb 8.9->8.9 was 9.2 on outpatient labs on 10/31
-Type and screen
-blood consent obtained and scanned to chart
-Consult GI
-Protonix 80 mg given in ER
-started on pantoprazole 40 mg BID PO
-Hold Xarelto
-on clear liquid
-plan for EGD tomorrow
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
-on telemetry
-no current symptoms
#elevated troponin
-0.042--0.041--0.041
-No ischemic changes per EKG
-asymptomatic
-will monitor
-Echo today EF 56 % improved from 2021 35-40%
Mild to moderate mitral valve regurgitation.
Mild to moderate tricuspid regurgitation. Estimated pulmonary artery pressure of 51 mmHg assuming a right atrial pressure of 8 mmHg.
Bilateral pleural effusion is noted.
-consult [facility] cardiology
-get old records from [facility]
#A-fib- permanent
- Hold Xarelto
-Continue metoprolol succinate 100 mg twice daily with hold parameters
- EKG : Afib 73 bpm, Bifasciular block qtc 511 ms T wave inversion anterior leads
#Hypertension
-BP 130/61
-cont Metoprolol succ 100 mg bid, Lasix 80 mg bid
-hold , Lisinopril 2.5 mg qpm
#CHF with chronic bilateral leg lymphedema
-B-BNP 3940
-I/o daily weight
-cont Lasix 40 mg bid
#CAD/CABG 1993
- cont BB, Statin
#Asthma
cont dupixent q2 weeks , Breztri inhaler, Singulari 10 mg hs
#Anxiety
cont Duloxetine 30 mg daily
#ex-smoker
#Sleep apnea/CPAP 08/31
Other PMH:
osteoarthritis
radical prostatectomy 1996
DVT proph
scd's hold Xarelto
Anticipated Discharge: > 48 hours
Subjective/Interval History
-
Date of Service: November 12, 2025
Pt has no chest pain, shortness of breath , palpitation, nausea , vomiting. He stated he had black stool for the last two days.
Objective Data
-
Labs:
Laboratory Results
11/12/25
05:07
WBC 3.3 L
Hgb 8.6 L
Hct 26.9 L
Plt Count 156
Sodium 140
Potassium 3.6
Chloride 107
Carbon Dioxide 25
BUN 18
Creatinine 1.1
Glucose 89
Calcium 9.0
Total Bilirubin 0.8
AST 17
ALT < 10
Alkaline Phosphatase 101
Vital Signs:
Vital Signs
Temp Pulse Resp BP Pulse Ox
98.4 F 79 19 122/62 94
11/12/25 16:00 11/12/25 16:50 11/12/25 16:50 11/12/25 16:50 11/12/25 16:00
I&O
11/11/25 11/12/25 11/13/25
06:59 06:59 06:59
Intake Total 400 / 400
Output Total 750 / 750
Balance -350 / -350
Review of Systems
-
History Source: Patient
Respiratory: Reports No Symptoms
Cardiac: Reports No Symptoms
Abdomen/GI: Reports Black Stools (last two days)
Genitourinary: Reports No Symptoms
Physical Exam
-
General: Well Developed, Well Nourished and No Apparent Distress
HEENT: Normocephalic, Atraumatic and Moist Mucous Membranes
Respiratory: Clear to Auscultation
Cardiac: Regular Rhythm and S1/S2
GI: Soft, Nontender and Nondistended
Rectal: Black and Hemorrhoids (external)
Musculoskeletal: Edema, Right Lower Extrem and Edema, Left Lower Extrem
Skin: Warm and Dry
Neuro: Alert, Oriented and AO x 3
Psych: Calm
[2025-11-12] MEDS: SINGULAIR 10 MG PO (22:19)
[2025-11-13] VITALS (8 sets, daily range): BP systolic 102–157; BP diastolic 47–85; PULSE 2–91; BMI 29.5
[2025-11-13] MEDS: TOPROL XL PO (08:03)
[2025-11-13] MEDS: CYMBALTA DELAYED RELEASE 30 MG PO (08:03)
[2025-11-13] MEDS: PROTONIX IV 40 MG IV ×2 (08:04→20:27)
[2025-11-13] MEDS: NSS (PRESERVATIVE FREE) 10 ML IV ×2 (08:04→20:26)
[2025-11-13] MEDS: LASIX PO (08:04)
[2025-11-13] MEDS: SYMBICORT 160/4.5 MCG INHALER 2 PUFF INH ×2 (08:31→20:17)
[2025-11-13] MEDS: SPIRIVA RESPIMAT 2.5 MCG 2 PUFF INH (08:31)
[2025-11-13 08:45] LABS: Hematocrit 27.9 % (39.0-52.0); Hemoglobin 9.0 g/dL (13.0-18.0); Mean Corp Hgb Conc. 32.3 g/dL (33.0-37.0); Mean Corpuscular Volume 95.5 fL (80.0-94.0); Nucleated Red Blood Cells % 0 % (-); Platelet Count 172 10^3/uL (130-400); Red Cell Dist. Width 15.4 % (11.5-14.5)
[2025-11-13 09:24] LABS: ALT (SGPT) 10 U/L (0-50); AST (SGOT) 19 U/L (17-59); Albumin 3.6 g/dl (3.5-5.0); Alkaline Phosphatase 110 U/L (38-126); Blood Urea Nitrogen 16 mg/dl (9-20); Calcium 9.1 mg/dl (8.4-10.2); Carbon Dioxide 26 mmol/L (22-30); Chloride 105 mmol/L (98-107); Estimated Creatinine Clearance 46 ml/min; Glucose 91 mg/dl (70-99); Potassium 3.5 mmol/L (3.5-5.1); Sodium 139 mmol/L (135-145); Total Protein 7.0 g/dl (6.3-8.2); eGFR 57.81
--- NOTE | 2025-11-13 10:15 | PTCARENOTE ---
pt transferred to GI lab K robert will be upon return, K+ 3.5
--- NOTE | 2025-11-13 10:59 | W.PN.CARDCBS ---
Addendum entered and electronically signed by Edgar Andres MD 11/13/25 17:15:
With ongoing bradycardia will decrease metoprolol dose to 50 mg twice daily
Original Note:
Today's Communication / Plan
-
Continue IV Lasix
Resume anticoagulation when safe from GI standpoint
Impression / Plan
-
Primary Potato Peeling Machine Operator: Dr. Eldridge
Assessment:
Presentation with dark stools
Anemia
Concern for GI bleed
Suspected acute on chronic HFrEF
Elevated troponin, suspected nonischemic myocardial injury
Permanent atrial fibrillation
Chronic OAC with Xarelto
Issues with intermittent hematuria secondary to prior radiation for prostate cancer, planned for Watchman 12/01/2025
CAD with h/o CABG x2 HARDWICK to LAD, SVG to OM1 02/1995
Ischemic CM
Mod MR
HTN
HLD
CKD
COPD
ECHO 01/30/2025 at [facility]: EF 45 to 50%, moderate MR
Plan:
- Patient presents with dark stools x 2 days.
- With evidence of acute on chronic anemia, hemoglobin 8.6
- GI consulted for evaluation
- Holding outpatient Xarelto
- Tentatively planned for Watchman procedure 12/01/25 at
- Volume overloaded on exam at the time of admission with proBNP 3900
- Would continue IV Lasix twice daily
- Follow daily weights, renal function electrolytes
- Troponin borderline elevated and peaked at 0.042 - no need to trend further
- Not reporting CP
-Suspected nonischemic myocardial injury in the setting of acute blood loss anemia
Progress Note - Potato Peeling Machine Operator
Subjective
Date of Service: November 13, 2025
No acute overnight events. Patient including no chest discomfort or dyspnea. Tells me that his lower extremity edema significantly improved.
Objective
Labs:
11/13/25 08:05
11/13/25 08:05
Labs
Hgb 9.0 g/dL (13.0-18.0) L 11/13/25 08:05
Hct 27.9 % (39.0-52.0) L 11/13/25 08:05
Plt Count 172 10^3/uL (130-400) 11/13/25 08:05
PT 19.1 Sec (11.4-14.6) H 11/11/25 16:21
INR 1.64 11/11/25 16:21
Sodium 139 mmol/L (135-145) 11/13/25 08:05
Potassium 3.5 mmol/L (3.5-5.1) 11/13/25 08:05
BUN 16 mg/dl (9-20) 11/13/25 08:05
Creatinine 1.2 mg/dL (0.7-1.3) 11/13/25 08:05
Glucose 91 mg/dl (70-99) 11/13/25 08:05
Troponins
11/11/25 11/11/25 11/12/25
10:23 19:04 00:53
Troponin I Cancelled 0.033 0.042 H* D
11/12/25 11/12/25 11/12/25
05:07 11:14 16:00
Troponin I 0.041 H* 0.041 H* Cancelled
11/12/25
22:00
Troponin I Cancelled
Vital Signs and I&O:
Vital Signs
Temp Pulse Resp BP Pulse Ox
97.4 F 53 16 154/85 100
11/13/25 07:28 11/13/25 08:04 11/13/25 07:28 11/13/25 07:28 11/13/25 07:28
Vital Signs
Temp Pulse Resp BP Pulse Ox
97.4 F 53 16 154/85 100
11/13/25 07:28 11/13/25 08:04 11/13/25 07:28 11/13/25 07:28 11/13/25 07:28
Intake & Output
11/11/25 11/12/25 11/13/25 11/14/25
06:59 06:59 06:59 06:59
Intake Total 400 / 400
Output Total 1850 / 1850
Balance -1450 / -1450
Physical Exam
Physical Exam
Gen: NAD, AAOx3
HEENT: NC/AT, sclera anicteric
Neck: No JVD
CV: Regular, NL s1/s2
Lungs: CTAB
Ext: Nonpitting LE edema
Skin: Warm, dry
Neuro: Non-focal
--- NOTE | 2025-11-13 11:27 | CM ---
CM reviewed chart, patient seen bedside, initial assessment completed.
Patient is a 89M with past medical history of A-fib on Eliquis, hypertension, hematuria who presents with new onset of melena that began last evening and has continued throughout the day today.
Patient resides with his at [place]- confirmed with liaison at [place].
Patient reports he just moved to [place] from another facility- per PT notes, patient was at [facility].
DME includes CPAP, unsure provider, [facility]ER[facility] linda
Pt denies VN, [facility] SNF.
PCP Jason Irwin, Pharmacy [facility] [place].
CM discussed therapy recommendations of SNF- patient declining and wants to return home.
CM will continue to follow for all d/c needs.
Plan; patient refusing SNF, home with potential VN
--- NOTE | 2025-11-13 13:20 | W.PN.UPDATE ---
Update Note
Progress Note Update
Brief GI Update Note:
Spoke with patient's , Kelsey, this afternoon regarding her 's recent upper endoscopy. Discussed that his recent EGD was grossly unremarkable without any significant findings to account for his mild anemia and previous concern for
melena. Specifically, there were no erosions, ulcerations or other AVMs throughout the GI tract up to the fourth portion of the duodenum. Discussed potentially pursuing a colonoscopy while inpatient as no source found along with the need to restart
anticoagulation (xarelto). However, patient was very reluctant to pursue this after discussing this with him after his EGD and declined. Upon further discussion with patient's , he recently had a colonoscopy this year with at [facility] with Dr. Errol Ryan. Had multiple polyps removed and was not advised to repeat colonoscopy. No report of this, however given the fact that he reportedly had a colonoscopy this year he was hesitant to pursue another repeat colonoscopy and
wishes to hold off. For now, would defer any plans for colonoscopy and favor restarting his anticoagulation this evening while monitoring for any signs of recurrent melena or significant drop in hemoglobin. If he is without any overt GI bleeding
or other concern over the next 24 hours, reasonable to discharge with very close outpatient follow-up with his primary GI, Dr. Ryan, with [facility] to discuss a potential repeat colonoscopy as an outpatient. Addressed all questions and
concerns.
Discussed with primary internal medicine team this afternoon. GI will sign off, please recontact with any questions or concerns.
[2025-11-13] MEDS: LASIX 40 MG PO (15:04)
[2025-11-13] MEDS: KCL 20 MEQ PO (15:04)
--- NOTE | 2025-11-13 17:13 | PTCARENOTE ---
cardiology notified pt ha at times, dipped to 39 with pause noted, strip on chart. pt denies s/s
[2025-11-13] MEDS: LIPITOR 40 MG PO (18:06)
--- NOTE | 2025-11-13 19:26 | W.PN.HOSP.TC ---
Addendum entered and electronically signed by Dami Eid MD 11/13/25 22:23:
Attending Addendum-
I saw and evaluated the patient. I reviewed the resident�s note and agree with findings and plan as documented in the resident�s note. Sub: Seen post EGD. No complaints want to eat. Denies CP palps abd pain NV. Full 12 point ROS reviewed and
negative except as documented Exam: Vitals reviewed in chart GEN-NAd heart irreg irreg SM @ RUSB, lungs clear no W/R/R Abd soft NT ND pos BS Le 2+ non pitting edema
Plan:
#Acute GI Bleed
- melena
- Hemoccult positive ER
- Hgb stable
- Type and screen/consent obtained
- GI input appreciated
- EGD 11/13-no source of bleed identified
- for colon as OP
- cont protonix daily
- restart Xarelto tonight- monitor for bleed
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
#murmur
No current symptoms
-trend troponin
-Echo 11/12
1. Left ventricular ejection fraction is normal with an ejection fraction of 56 % by Street's biplane method of discs.
2. Right ventricular size and systolic function are within normal limits.
3. Aortic sclerosis without stenosis.
4. Mild to moderate mitral valve regurgitation.
5. Mild to moderate tricuspid regurgitation. Estimated pulmonary artery pressure of 51 mmHg assuming a right atrial pressure of 8 mmHg.
6. Bilateral pleural effusion is noted.
7. Compared to prior study dated 10/12/2022, left ventricular systolic function was previously moderately reduced with LVEF 35-40%.
- appreciate cardiology input
#A-fib- permanent
- bradycardic
- restart Xarelto
- decrease metoprolol succinate hold parameters
- eventual watchman 01/03
#HTN
- decrease Metoprolol, cont Lasix
- hold Lisinopril
#HFimpEF
-repeat echo with ef from 35-40%->56%
-cont GDMT-toprol XL, lisinopril, SGLTi2, not on MRA
-cont PO lasix
#CAD/CABG 1993
- cont metoprolol and atorvastatin
#Asthma
cont dupixent q2 weeks , Breztri inhaler, Singulari 10 mg hs
#Anxiety
cont Duloxetine 30 mg daily
#ex-smoker
#Sleep apnea/CPAP 08/31
Other PMH:
osteoarthritis
radical prostatectomy 1996
DVT proph-Xarelto
Dispo DC back to [facility] in AM
Time spent coordinating care, review of plan of care with resident, personally reviewed records in EMR, med rec, consults, notes, labs, radiology, d/w nursing, GI� 51 mins
Original Note:
Today's Communication/Plan
-
EGD done today
restart Xarelto at 10 pm today
if remain stable tomorrow and no active bleeding , plan to discharge tomorrow
Assessment / Plan
Assessment / Plan
89-year-old male from [facility] where he moved in on 11/12/2025. He reports he has had rectal bleeding x 2 days black in color. He is on Xarelto for A-fib. The pt States he had Some rectal bleeding about 1 year ago that was
contributed to hemorrhoids. He denies any recent colonoscopy. The patient denies chest pain, palpitations, shortness of breath, dizziness, headache, fever, chills, abdominal pain, nausea, vomiting, diarrhea, urinary symptoms. Medical history
includes CHF, CAD/CABG 1993, HLD, asthma, ex-smoker, sleep apnea/CPAP 08/31, GERD, osteoarthritis, radical prostatectomy 1996, chronic bilateral leg lymphedema
11/12/2025: I spoke with his daughter Anne and ubaldo who stated that he had multiple hematuria with his hx of prostate cancer the lab rep scheduled him for watchman procedure to be done on 12/30/2025 to be off Xarelto. she stated that two days
ago had black stool but yesterday was a maroon colored stool.
Plan:
Admit to telemetry
#Rectal bleeding with anemia concern for lower GI bleed
-Hx of GERD
-Hx of Hemorrhoids 1 year ago with rectal bleeding, last colonoscopy was several years ago at [place] with polyps
-Bedside Hemoccult positive ER
-rectal exam , black stool
-Hgb 8.9->8.9 was 9.2 on outpatient labs on 10/31 today 9.0
-Type and screen
-blood consent obtained and scanned to chart
-Consult GI
-Protonix 80 mg given in ER
-started on pantoprazole 40 mg BID PO
-Hold Xarelto
-on clear liquid
-EGD done today , no active source of bleeding found biopsy taken.No need for cololnoscopt , pt had colonoscopt this year with his GI, reccs follow up with pt GI as an out pt
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
-on telemetry
-no current symptoms
#elevated troponin
-0.042--0.041--0.041
-No ischemic changes per EKG
-asymptomatic
-will monitor
-Echo today EF 56 % improved from 2021 35-40%
Mild to moderate mitral valve regurgitation.
Mild to moderate tricuspid regurgitation. Estimated pulmonary artery pressure of 51 mmHg assuming a right atrial pressure of 8 mmHg.
Bilateral pleural effusion is noted.
-consult [facility] cardiology
-get old records from [facility]
#A-fib- permanent
- Hold Xarelto
-Continue metoprolol succinate 100 mg twice daily with hold parameters
- EKG : Afib 73 bpm, Bifasciular block qtc 511 ms T wave inversion anterior leads
#Hypertension
-BP 130/61
-cont Metoprolol succ 100 mg bid, Lasix 80 mg bid
-hold , Lisinopril 2.5 mg qpm
#CHF with chronic bilateral leg lymphedema
-B-BNP 3940
-I/o daily weight
-cont Lasix 40 mg bid
#CAD/CABG 1993
- cont BB, Statin
#Asthma
cont dupixent q2 weeks , Breztri inhaler, Singulari 10 mg hs
#Anxiety
cont Duloxetine 30 mg daily
#ex-smoker
#Sleep apnea/CPAP 08/31
Other PMH:
osteoarthritis
radical prostatectomy 1996
DVT proph
scd's hold Xarelto
Anticipated Discharge: Within 24 hours
Subjective/Interval History
-
Date of Service: November 13, 2025
no overnight event, He has no abd pain, nor recent rectal bleed, no nausea or vomiting. Denies chest pain, palpitation, lightheadedness.
Objective Data
-
Labs:
Laboratory Results
11/13/25
08:05
WBC 4.0 L
Hgb 9.0 L
Hct 27.9 L
Plt Count 172
Sodium 139
Potassium 3.5
Chloride 105
Carbon Dioxide 26
BUN 16
Creatinine 1.2
Glucose 91
Calcium 9.1
Total Bilirubin 0.9
AST 19
ALT 10
Alkaline Phosphatase 110
Vital Signs:
Vital Signs
Temp Pulse Resp BP Pulse Ox
97.9 F 53 14 138/65 99
11/13/25 15:00 11/13/25 15:00 11/13/25 15:00 11/13/25 15:00 11/13/25 15:00
I&O
11/12/25 11/13/25 11/14/25
06:59 06:59 06:59
Intake Total 400 / 400
Output Total 1850 / 185 550 / 550
Balance -1450 / -1450 -550 / -550
Review of Systems
-
History Source: Patient
Respiratory: Reports No Symptoms
Cardiac: Reports No Symptoms
Abdomen/GI: Reports No Symptoms
Physical Exam
-
Respiratory: Clear to Auscultation
Cardiac: Regular Rhythm and S1/S2
GI: Soft, Nontender and Nondistended
Psych: Calm
[2025-11-13] MEDS: XARELTO 20 MG PO (20:24)
[2025-11-13] MEDS: SINGULAIR 10 MG PO (20:24)
[2025-11-13] MEDS: TOPROL XL 50 MG PO (20:25)
[2025-11-14] VITALS (9 sets, daily range): BP systolic 120–152; BP diastolic 62–75; PULSE 2–72; O2SAT 99; BMI 29.5
--- NOTE | 2025-11-14 06:50 | W.PN.CARDCBS ---
Today's Communication / Plan
-
Maintain Lasix 40 mg p.o. twice daily
Agree with resumption of Xarelto
I have sent a message to Dr. Garcai regarding reevaluation of his Watchman date.
Will sign off
Impression / Plan
-
Primary Care Management Associate: Dr. Eldridge
Assessment:
Presentation with dark stools
Anemia
Concern for GI bleed
Suspected acute on chronic HFrEF
Elevated troponin, suspected nonischemic myocardial injury
Permanent atrial fibrillation
Chronic OAC with Xarelto
Issues with intermittent hematuria secondary to prior radiation for prostate cancer, planned for Watchman 12/01/2025
CAD with h/o CABG x2 HARDWICK to LAD, SVG to OM1 02/1995
Ischemic CM
Mod MR
HTN
HLD
CKD
COPD
ECHO 01/30/2025 at [facility]: EF 45 to 50%, moderate MR
Plan:
GI Bleed:
- Patient presented with evidence of acute on chronic anemia, hemoglobin 8.6, dark stools x 2 days.
- GI consulted for evaluation
EGD 11/13-no source of bleed identified
for colon as OP
- Xarelto resumed as of 11/13 PM
- Tentatively planned for Watchman procedure 12/01/[address] Eaton
(Will forward message to Dr Eaton regarding consideration for maintaining this date or postponing this date)
HFmrEF:
- Volume overloaded on exam at the time of admission with proBNP 3900
- Would continue outpatient dose of Lasix at 40 mg p.o. twice daily
- Follow daily weights, renal function electrolytes
Permanent atrial fibrillation:
- Maintain rate control, metoprolol recently reduced in dose for bradycardia, heart rates improved.
- Xarelto has been resumed
Troponin abn:
- Troponin borderline elevated and peaked at 0.042 - no need to trend further
- Not reporting CP
- Suspected nonischemic myocardial injury in the setting of acute blood loss anemia
Will sign off, please contact us if we can be of further assistance.
Progress Note - Care Management Associate
Subjective
Date of Service: November 14, 2025
He tells me he feels well this morning no chest pain shortness of breath palpitations or dizziness
Objective
Labs:
Labs
Hgb 9.0 g/dL (13.0-18.0) L 11/13/25 08:05
Hct 27.9 % (39.0-52.0) L 11/13/25 08:05
Plt Count 172 10^3/uL (130-400) 11/13/25 08:05
PT 19.1 Sec (11.4-14.6) H 11/11/25 16:21
INR 1.64 11/11/25 16:21
Sodium 139 mmol/L (135-145) 11/13/25 08:05
Potassium 3.5 mmol/L (3.5-5.1) 11/13/25 08:05
BUN 16 mg/dl (9-20) 11/13/25 08:05
Creatinine 1.2 mg/dL (0.7-1.3) 11/13/25 08:05
Glucose 91 mg/dl (70-99) 11/13/25 08:05
Troponins
11/11/25 11/11/25 11/12/25
10:23 19:04 00:53
Troponin I Cancelled 0.033 0.042 H* D
11/12/25 11/12/25 11/12/25
05:07 11:14 16:00
Troponin I 0.041 H* 0.041 H* Cancelled
11/12/25
22:00
Troponin I Cancelled
Vital Signs and I&O:
Vital Signs
Temp Pulse Resp BP Pulse Ox
97.5 F 54 14 142/66 99
11/14/25 03:00 11/14/25 03:00 11/14/25 03:00 11/14/25 03:00 11/14/25 03:00
Vital Signs
Temp Pulse Resp BP Pulse Ox
97.5 F 54 14 142/66 99
11/14/25 03:00 11/14/25 03:00 11/14/25 03:00 11/14/25 03:00 11/14/25 03:00
Intake & Output
11/11/25 11/12/25 11/13/25 11/14/25
06:59 06:59 06:59 06:59
Intake Total 400 / 400 240 / 240
Output Total 1850 / 1850 900 / 900
Balance -1450 / -1450 -660 / -660
Physical Exam
Physical Exam
Gen: NAD, AAOx3
HEENT: NC/AT, sclera anicteric
Neck: No JVD
CV: Regular, NL s1/s2, there is no S3 there is no S4. There is a grade 1/6 apical holosystolic murmur and a grade 1/6 basal systolic murmur. There are no rubs
Lungs: CTAB
Ext: Nonpitting LE edema
Skin: Warm, dry
Neuro: Non-focal
[2025-11-14 07:28] LABS: Hematocrit 30.4 % (39.0-52.0); Hemoglobin 10.1 g/dL (13.0-18.0); Mean Corp Hgb Conc. 33.2 g/dL (33.0-37.0); Mean Corpuscular Volume 94.4 fL (80.0-94.0); Nucleated Red Blood Cells % 0 % (-); Platelet Count 140 10^3/uL (130-400); Red Cell Dist. Width 15.3 % (11.5-14.5)
[2025-11-14] MEDS: SPIRIVA RESPIMAT 2.5 MCG 2 PUFF INH (07:31)
[2025-11-14] MEDS: SYMBICORT 160/4.5 MCG INHALER 2 PUFF INH ×2 (07:32→17:55)
[2025-11-14 09:06] LABS: ALT (SGPT) 11 U/L (0-50); AST (SGOT) 20 U/L (17-59); Albumin 3.2 g/dl (3.5-5.0); Alkaline Phosphatase 90 U/L (38-126); Blood Urea Nitrogen 15 mg/dl (9-20); Calcium 8.9 mg/dl (8.4-10.2); Carbon Dioxide 25 mmol/L (22-30); Chloride 109 mmol/L (98-107); Estimated Creatinine Clearance 55 ml/min; Glucose 95 mg/dl (70-99); Potassium 3.9 mmol/L (3.5-5.1); Sodium 138 mmol/L (135-145); Total Protein 6.4 g/dl (6.3-8.2); eGFR > 60.00
--- NOTE | 2025-11-14 09:45 | W.PN.HOSP.TC ---
Addendum entered and electronically signed by Adele Hernandez MD 11/14/25 15:25:
I saw and evaluated the patient independently. I reviewed and discussed the resident�s note and agree with findings and plan as documented by Dr. Patterson.
GENERAL: well developed, well nourished, male in no apparent distress
HEENT: NC/AT--no O2 requirements
HEART: regular rate and rhythm, +S1, +S2, NEPTALI
LUNGS : clear to auscultation bilaterally
ABDOM: soft, nontender, nondistended, + bowel sounds
EXT: no cyanosis, clubbing-- 3+ LE edema bilaterally
NEUROLOGIC: grossly intact
acute blood loss anemia from GI blood loss (Hx GERD, hemorrhoids) --suspect lower GI bleed--EGD done 11/13 and neg--pt wants colonoscopy now--hold Xarelto again--apprec GI, likely scope Sunday--HGB 8.9 to 10.1 without transfusion--had black stool
again this AM--cont PPI--cont clears
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
elevated troponin--suspect nonischemic myocardial injury--troponin stable--EKG no ischemia, no symptoms--ECHO 11/13 improved EF to 56%, mitral and tricuspid regurgitation--hold Xarelto--apprec cards--cont PO lasix BID
Permanent atrial fibrillation-- for Watchman--holding Xarelto for planned colonoscopy on Sunday--reduced metoprolol succinate 100 mg twice daily yesterday per cardiology due to bradycardia.
Essential Hypertension -cont reduced dose Metoprolol succ 100 mg bid to 50 mg BID , Lasix 40 mg bid -hold Lisinopril 2.5 mg qpm
HFpEF with chronic bilateral leg lymphedema--no exacerbation--cont outpt lasix dosing, daily weights, I/Os
CAD/CABG 1993- cont BB, Statin
Asthma--no exacerbation--cont dupixent q2 weeks , Breztri inhaler, Singulari 10 mg hs
Anxiety-- cont Duloxetine 30 mg daily
Sleep apnea--BiPAP 08/31
osteoarthritis
radical prostatectomy 1996
DVT proph
code status--Full code
Original Note:
Today's Communication/Plan
-
Pt has rectal bleeding
Xarelto held
GI consulted and scheduled for inpatient colonoscopy on 11/17/2025, GI will see the pt tomorrow
speech therapy will evaluate him today
PT/OT evaluation
continue lasix 40mg BID
continue decreased dose of metoprolol succinate 50mg bid due to bradycardia yesterday per cardiology
Assessment / Plan
Assessment / Plan
89-year-old male from [facility] where he moved in on 11/12/2025. He reports he has had rectal bleeding x 2 days black in color. He is on Xarelto for A-fib. The pt States he had Some rectal bleeding about 1 year ago that was
contributed to hemorrhoids. He denies any recent colonoscopy. The patient denies chest pain, palpitations, shortness of breath, dizziness, headache, fever, chills, abdominal pain, nausea, vomiting, diarrhea, urinary symptoms. Medical history
includes CHF, CAD/CABG 1993, HLD, asthma, ex-smoker, sleep apnea/CPAP 08/31, GERD, osteoarthritis, radical prostatectomy 1996, chronic bilateral leg lymphedema
11/12/2025: I spoke with his daughter Anne and ubaldo who stated that he had multiple hematuria with his hx of prostate cancer the bridge teacher scheduled him for watchman procedure to be done on 12/30/2025 to be off Xarelto. she stated that two days
ago had black stool but yesterday was a maroon colored stool.
11/13/2025: pt reported to the GI that he doesnt want to proceed with colonoscopy , Hi stated that he had a colonoscopy this year at [facility] with Dr Ryan and multiple polyps had been removed.
had bowel movement no blood , brown color stool.
11/14/2025: AFVSS, pt had rectal bleeding today, Ict Sales Assistant consulted and the Xarelto held for colonoscopy to be done on Sunday11/17/2025
Plan:
Admit to telemetry
#Rectal bleeding with anemia concern for lower GI bleed
-Hx of GERD
-Hx of Hemorrhoids 1 year ago with rectal bleeding, last colonoscopy was several years ago at [place] with polyps
-Bedside Hemoccult positive ER
-rectal exam , black stool
-Hgb 8.9->8.9 was 9.2 on outpatient labs on 10/31 today 9.0-->10
-Type and screen
-blood consent obtained and scanned to chart
-Consult GI
-Protonix 80 mg given in ER
-started on pantoprazole 40 mg BID PO
-Xarelto resumed 11/13/2025 at 10 pm after EGD
-on clear liquid
-EGD done today , no active source of bleeding found biopsy taken. No need for colonoscopy , per pt he had a colonoscopy this year with dr Ryan , [facility], [place] follow up with pt GI as an out pt.
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
-on telemetry
-no current symptoms
#elevated troponin
-0.042--0.041--0.041
-No ischemic changes per EKG
-asymptomatic
-will monitor
-Echo today EF 56 % improved from 2022 35-40%
Mild to moderate mitral valve regurgitation.
Mild to moderate tricuspid regurgitation. Estimated pulmonary artery pressure of 51 mmHg assuming a right atrial pressure of 8 mmHg.
Bilateral pleural effusion is noted.
-consult [facility] cardiology
-get old records from [facility]
#A-fib- permanent
- Xarelto resumed 11/13/2025 after EGD
-reduced metoprolol succinate 100 mg twice daily yesterday per cardiology due to bradycardia.
- EKG : Afib 73 bpm, Bifasciular block qtc 511 ms T wave inversion anterior leads
#Hypertension
-BP 130/61
-cont reduced dose Metoprolol succ 100 mg bid to 50 mg BID , Lasix 40 mg bid
-hold , Lisinopril 2.5 mg qpm
#CHF with chronic bilateral leg lymphedema
-B-BNP 3940
-I/o daily weight
-cont Lasix 40 mg bid
#CAD/CABG 1993
- cont BB, Statin
#Asthma
cont dupixent q2 weeks , Breztri inhaler, Singulari 10 mg hs
#Anxiety
cont Duloxetine 30 mg daily
#ex-smoker
#Sleep apnea/CPAP 08/31
Other PMH:
osteoarthritis
radical prostatectomy 1996
DVT proph
scd's hold Xarelto
Anticipated Discharge: > 48 hours
Subjective/Interval History
-
Date of Service: November 14, 2025
No over night event. He stated that he had bowel movement yesterday brown in color. He had GI rectal bleeding today (black colored stool).He denies abdominal pain, nausea, vomiting. He denied chest pain, SOB, palpitation.
Objective Data
-
Labs:
Laboratory Results
11/14/25 11/14/25
06:52 08:12
WBC 4.0 L
Hgb 10.1 L
Hct 30.4 L
Plt Count 140
Sodium Cancelled 138
Potassium Cancelled 3.9
Chloride Cancelled 109 H
Carbon Dioxide Cancelled 25
BUN Cancelled 15
Creatinine Cancelled 1.0
Glucose Cancelled 95
Calcium Cancelled 8.9
Total Bilirubin Cancelled 0.8
AST Cancelled 20
ALT Cancelled 11
Alkaline Phosphatase Cancelled 90
Vital Signs:
Vital Signs
Temp Pulse Resp BP Pulse Ox
98 F 64 16 152/75 99
11/14/25 07:00 12/20/25 07:38 11/14/25 07:38 11/14/25 07:00 11/14/25 07:38
I&O
11/13/25 11/14/25 11/15/25
06:59 06:59 06:59
Intake Total 400 / 400 240 / 240
Output Total 1850 / 1850 900 / 900
Balance -1450 / -1450 -660 / -660
Review of Systems
-
History Source: Patient
Respiratory: Reports No Symptoms
Cardiac: Reports No Symptoms
Abdomen/GI: Reports No Symptoms
Physical Exam
-
Respiratory: Clear to Auscultation
Cardiac: Regular Rhythm, S1/S2 and Murmur
GI: Soft, Nontender and Nondistended
Psych: Calm
[2025-11-14] MEDS: PROTONIX 40 MG PO (10:24)
[2025-11-14] MEDS: CYMBALTA DELAYED RELEASE 30 MG PO (10:24)
[2025-11-14] MEDS: LASIX 40 MG PO ×2 (10:24→18:03)
[2025-11-14] MEDS: TOPROL XL 50 MG PO ×2 (10:25→20:43)
--- NOTE | 2025-11-14 10:39 | PTOTSP ---
Speech Therapy Evaluation
Pt seen for bedside swallow assessment. Pt managed PO trials with no overt s/sx of aspiration, however, cannot rule out silent aspiration at bedside. Pt appears to have functional oropharyngeal swallow function. Pt previously seen by speech-language
therapy in May of 2021 with no concerns for dysphagia. Pt room air but WBC low (4). Increased�risk of aspiration given PMH of GERD, COPD, and CHF.�
Recommend:
1. Regular solids and thin liquids
2. Meds as best tolerated
3. Standard aspiration precautions; HOB fully upright for all PO intake and for 60 minutes after PO intake due to GERD
4. TELECOM BILLING ANALYST to s/o. Reconsult if concerned for aspiration or if concerning chest imaging/respiratory status
[2025-11-14 16:06] LABS: Hematocrit 31.9 % (39.0-52.0); Hemoglobin 10.5 g/dL (13.0-18.0)
[2025-11-14] MEDS: LIPITOR 40 MG PO (18:03)
[2025-11-14] MEDS: SINGULAIR 10 MG PO (20:43)
[2025-11-15] VITALS (8 sets, daily range): BP systolic 118–143; BP diastolic 51–70; PULSE 2–74; BMI 29.2
--- NOTE | 2025-11-15 06:08 | W.PN.GI.CBS2 ---
Today's Communication / Plan
-
Drop in H/h since restarting xarelto. Continue to hold a/c to allow 2-day washout. Will start gentle prep with Miralax this afternoon and start CLD. Plan for colonoscopy on 11/17/25, for further evaluation of melena. Rest of care as below.
Assessment / Plan
-
This is a 89yo male presents with 2 days black stools, heme positive in ER. On xarelto for Afib, last dose couple days ago. Takes rare NSAIDs for leg pain. Gets colonoscopies at [facility], last couple years ago. No prior EGD. Hgb 8.9 on admission and
rpt stable 8.6. Baseline 9-10 range. Cardiology consulted for ECG changes, trop peak 0.042, suspect nonischemic myocardial injury.
#Melena
#Afib on xarelto last dose 11/10
#Acute on Chronic Anemia
#Hx of Colon Polyps (Last colon OSH 1-2 years ago?)
Recent prior EGD 11/13/25 unremarkable and without any source to explain patient's presentation. Discussed pursuing a colonoscopy on 11/13 after EGD however patient declined colonoscopy. Was eventually restarted on xarelto evening on 11/13 as
favored monitoring while in house given concern for rebleeding. Hgb trended up 9.0 -> 10.1 -> 10.5 however had recurrent dark black stools concerning for melena. Otherwise, remains HD-stable and drop in Hgb 10.5 -> 8.9 this AM on 11/15 further
suggestive of likely LGIB source given restarting anticoagulation. Patient now amenable in regards to proceeding with a colonoscopy while inpatient. However, given timing of xarelto (last dose evening on 11/13-) would need to pursue colonoscopy on
11/17/25, to allow 2-day wash-out. Otherwise, no signs to suggest brisk GI bleeding at this time.
Recommendations:
- Start CLD this afternoon and continue CLD all day tomorrow
- Trend Hgb with serial CBC, transfuse for goal Hgb > 8.0
- PPI 40 mg once daily
- Will start gentle prep with Miralax this afternoon for two-day prep
- Plan for colonoscopy on 11/17/25, for further evaluation of melena given timing of xarelto
- Continue to hold xarelto while inpatient (last dose in evening of 11/13-)
- Avoidance of all NSAIDs
- Rest of care as per primary team
GI will continue to follow, call with questions/concerns.
Subjective
Subjective
Date of Service: November 15, 2025
- Prior EGD 11/13/25 unremarkable and without any source to explain patient's presentation, previously declined colonoscopy
- Restarted on xarelto evening on 11/13 and Hgb trending up 9.0 -> 10.1 -> 10.5 -> 8.9
- Called back by primary team on 11/14 due to concern for recurrent, dark black stools. Now amenable in regards to pursuing colon
Discussed with patient this morning, now agreeable to proceeding with colonoscopy. Reports dark black stool yesterday afternoon and evening while a/c was restarted. No other bloody stools or rectal bleeding or other abdominal discomfort. Discussed
starting extended two-day, slow prep given need to perform colonoscopy on Sunday given timing of xarelto.
Objective
Data Reviewed
Laboratory Data:
Laboratory Results
PT 19.1 Sec (11.4-14.6) H 11/11/25 16:21
INR 1.64 11/11/25 16:21
Magnesium 2.2 mg/dl (1.6-2.3) 11/12/25 05:07
Total Bilirubin 0.8 mg/dl (0.2-1.3) 11/14/25 08:12
AST 20 U/L (17-59) 11/14/25 08:12
ALT 11 U/L (0-50) 11/14/25 08:12
Alkaline Phosphatase 90 U/L (38-126) 11/14/25 08:12
Lipase 37 U/L (23-300) 11/11/25 16:21
Vital Signs and I&O:
Vital Signs
Temp Pulse Resp BP Pulse Ox
97.6 F 54 18 134/70 100
11/15/25 03:51 11/15/25 03:51 11/15/25 03:51 11/15/25 03:51 11/15/25 03:51
I&O
11/13/25 11/14/25 11/15/25
06:59 06:59 06:59
Intake Total 400 / 400 240 / 240
Output Total 1850 / 1850 900 / 900 1150 / 1150
Balance -1450 / -1450 -660 / -660 -1150 / -1150
Physical Exam
Physical Exam
HEENT: Anicteric and Moist mucous membranes
Pulmonary: Other (Normal WOB on room air)
GI: Soft, Non Distended and Non Tender
Extremities: Warm
Neuro: Non Focal
[2025-11-15 06:49] LABS: Hematocrit 27.1 % (39.0-52.0); Hemoglobin 8.9 g/dL (13.0-18.0); Mean Corp Hgb Conc. 32.8 g/dL (33.0-37.0); Mean Corpuscular Volume 94.4 fL (80.0-94.0); Platelet Count 141 10^3/uL (130-400); Red Cell Dist. Width 15.0 % (11.5-14.5)
[2025-11-15 07:10] LABS: ALT (SGPT) 10 U/L (0-50); AST (SGOT) 19 U/L (17-59); Albumin 3.2 g/dl (3.5-5.0); Alkaline Phosphatase 90 U/L (38-126); Blood Urea Nitrogen 13 mg/dl (9-20); Calcium 8.9 mg/dl (8.4-10.2); Carbon Dioxide 28 mmol/L (22-30); Chloride 105 mmol/L (98-107); Estimated Creatinine Clearance 55 ml/min; Glucose 103 mg/dl (70-99); Potassium 3.6 mmol/L (3.5-5.1); Sodium 138 mmol/L (135-145); Total Protein 6.3 g/dl (6.3-8.2); eGFR > 60.00
[2025-11-15] MEDS: SYMBICORT 160/4.5 MCG INHALER 2 PUFF INH ×2 (07:29→19:39)
[2025-11-15] MEDS: SPIRIVA RESPIMAT 2.5 MCG 2 PUFF INH (07:29)
[2025-11-15] MEDS: LASIX PO (08:10)
[2025-11-15] MEDS: TOPROL XL PO (08:10)
[2025-11-15] MEDS: CYMBALTA DELAYED RELEASE 30 MG PO (08:10)
[2025-11-15] MEDS: PROTONIX 40 MG PO (08:10)
--- NOTE | 2025-11-15 08:52 | W.PN.HOSP.TC ---
Addendum entered and electronically signed by Adele Hernandez MD 11/15/25 14:23:
I saw and evaluated the patient independently. I reviewed and discussed the resident�s note and agree with findings and plan as documented by Dr. Patterson.
GENERAL: well developed, well nourished, male in no apparent distress
HEENT: NC/AT--no O2 requirements
HEART:irreg irreg, NEPTALI
LUNGS : clear to auscultation bilaterally
ABDOM: soft, nontender, nondistended, + bowel sounds
EXT: no cyanosis, clubbing-- 3+ LE edema bilaterally
NEUROLOGIC: grossly intact
acute blood loss anemia from GI blood loss (Hx GERD, hemorrhoids) --suspect lower GI bleed--EGD done 11/13 and neg--pt wants colonoscopy now--hold Xarelto again--apprec GI, likely scope Sunday--HGB 8.9 to 10.1 and back to 8.9--trend H&H--transfuse
if HGB < 7--had black stool again this AM--cont PPI--cont clears
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
elevated troponin--suspect nonischemic myocardial injury--troponin stable--EKG no ischemia, no symptoms--ECHO 11/13 improved EF to 56%, mitral and tricuspid regurgitation--hold Xarelto--apprec cards--cont PO lasix BID
Permanent atrial fibrillation-- for Watchman, agree Xarelto not the best if he continues to bleed--holding Xarelto for planned colonoscopy on Sunday--reduced metoprolol succinate 100 mg twice daily yesterday per cardiology due to bradycardia.
Essential Hypertension -cont reduced dose Metoprolol succ 100 mg bid to 50 mg BID , Lasix 40 mg bid -hold Lisinopril 2.5 mg qpm
HFpEF with chronic bilateral leg lymphedema--no exacerbation--cont outpt lasix dosing, daily weights, I/Os
CAD/CABG 1993- cont BB, Statin
Asthma--no exacerbation--cont dupixent q2 weeks , Breztri inhaler, Singulari 10 mg hs
Anxiety-- cont Duloxetine 30 mg daily
Sleep apnea--BiPAP 08/31
osteoarthritis
radical prostatectomy 1996
DVT proph
code status--Full code
Original Note:
Today's Communication/Plan
-
continue hold Xarelto
Continue clear liquids
appreciate GI input
planned for colonoscopy inpatient next Sunday11/17/2025
repeat H and H with type cross match at 3 pm today
Assessment / Plan
Assessment / Plan
89-year-old male from [facility] where he moved in on 11/12/2025. He reports he has had rectal bleeding x 2 days black in color. He is on Xarelto for A-fib. The pt States he had Some rectal bleeding about 1 year ago that was
contributed to hemorrhoids. He denies any recent colonoscopy. The patient denies chest pain, palpitations, shortness of breath, dizziness, headache, fever, chills, abdominal pain, nausea, vomiting, diarrhea, urinary symptoms. Medical history
includes CHF, CAD/CABG 1993, HLD, asthma, ex-smoker, sleep apnea/CPAP 08/31, GERD, osteoarthritis, radical prostatectomy 1996, chronic bilateral leg lymphedema
11/12/2025: I spoke with his daughter Anne and updated who stated that he had multiple hematuria with his hx of prostate cancer the catcher helper scheduled him for watchman procedure to be done on 12/30/2025 to be off Xarelto. she stated that two days
ago had black stool but yesterday was a maroon colored stool.
11/13/2025: pt reported to the GI that he doesnt want to proceed with colonoscopy , Hi stated that he had a colonoscopy this year at [facility] with Dr Ryan and multiple polyps had been removed.
had bowel movement no blood , brown color stool.
11/14/2025: AFVSS, pt had rectal bleeding today, Ballistics Tester consulted and the Xarelto held for colonoscopy to be done on Sunday11/17/2025
11/15/2025, had total of two GI bleeding yesterday, and one overnight. this morning he had bradycardia , his Lasix and metoprolol morning dose was held
Plan:
Admit to telemetry
#Rectal bleeding with anemia concern for lower GI bleed
-Hx of GERD
-Hx of Hemorrhoids 1 year ago with rectal bleeding, last colonoscopy was several years ago at [place] with polyps
-Bedside Hemoccult positive ER
-rectal exam , black stool
-Hgb 8.9->8.9 was 9.2 on outpatient labs on 10/31 today 9.0-->10-->8.9-->10.5-->8.9
-Type and screen
-blood consent obtained and scanned to chart
-Consult GI
-Protonix 80 mg given in ER
-started on pantoprazole 40 mg BID PO
-Xarelto resumed 11/13/2025 at 10 pm after EGD , held back 11/15/25 due to GI bleeding
-on clear liquid
-EGD done today , no active source of bleeding found biopsy taken. No need for colonoscopy , per pt he had a colonoscopy this year with dr Ryan , [facility] follow up with pt GI as an out pt.
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
-on telemetry
-no current symptoms
#elevated troponin
-0.042--0.041--0.041
-No ischemic changes per EKG
-asymptomatic
-will monitor
-Echo today EF 56 % improved from 2021 35-40%
Mild to moderate mitral valve regurgitation.
Mild to moderate tricuspid regurgitation. Estimated pulmonary artery pressure of 51 mmHg assuming a right atrial pressure of 8 mmHg.
Bilateral pleural effusion is noted.
-consult [facility] cardiology
-get old records from [facility]
#A-fib- permanent
- Xarelto resumed 11/13/2025 after EGD, held on 11/15/2025 due to rebleeding per GI
-reduced metoprolol succinate 100 mg twice daily yesterday per cardiology due to bradycardia.
- EKG : Afib 73 bpm, Bifasciular block qtc 511 ms T wave inversion anterior leads
#Hypertension
-BP 130/61
-cont reduced dose Metoprolol succ 100 mg bid to 50 mg BID , Lasix 40 mg bid
-hold , Lisinopril 2.5 mg qpm
#CHF with chronic bilateral leg lymphedema
-B-BNP 3940
-I/o daily weight
-cont Lasix 40 mg bid
#CAD/CABG 1993
- cont BB, Statin
#Asthma
cont dupixent q2 weeks , Breztri inhaler, Singulari 10 mg hs
#Anxiety
cont Duloxetine 30 mg daily
#ex-smoker
#Sleep apnea/CPAP 08/31
Other PMH:
osteoarthritis
radical prostatectomy 1996
DVT proph
scd's hold Xarelto
Anticipated Discharge: > 48 hours
Subjective/Interval History
-
Date of Service: November 15, 2025
pt had one episode over night with rectal bleeding (melena). Was ha cardiac this morning high 50s. His lasix and metoprolol morning dose held. He denied abdominal pain, sob, chest pain, hematuria, dizziness, lightheadedness.
Objective Data
-
Labs:
Laboratory Results
11/15/25
05:51
WBC 3.9 L
Hgb 8.9 L
Hct 27.1 L
Plt Count 141
Sodium 138
Potassium 3.6
Chloride 105
Carbon Dioxide 28
BUN 13
Creatinine 1.0
Glucose 103 H
Calcium 8.9
Total Bilirubin 0.8
AST 19
ALT 10
Alkaline Phosphatase 90
Vital Signs:
Vital Signs
Temp Pulse Resp BP Pulse Ox
98.0 F 57 16 142/61 98
11/15/25 08:12 11/15/25 08:12 11/15/25 08:12 11/15/25 08:12 11/15/25 08:12
I&O
11/14/25 11/15/25 11/16/25
06:59 06:59 06:59
Intake Total 240 / 240
Output Total 900 / 900 1150 / 1150
Balance -660 / -660 -1150 / -1150
Review of Systems
-
History Source: Patient
Respiratory: Reports No Symptoms
Cardiac: Reports No Symptoms
Abdomen/GI: Reports Black Stools (overnight)
Genitourinary: Reports No Symptoms
Physical Exam
-
Respiratory: Clear to Auscultation
Cardiac: Regular Rhythm, S1/S2 and Murmur
GI: Soft, Nontender and Nondistended
Psych: Calm
[2025-11-15] MEDS: GAVILAX 238 GM PO (15:12)
[2025-11-15] MEDS: LIPITOR 40 MG PO (15:12)
[2025-11-15] MEDS: LASIX 40 MG PO (15:13)
[2025-11-15 16:01] LABS: Hematocrit 25.7 % (39.0-52.0); Hemoglobin 8.6 g/dL (13.0-18.0)
[2025-11-15] MEDS: TOPROL XL 50 MG PO (20:26)
[2025-11-15] MEDS: SINGULAIR 10 MG PO (20:26)
[2025-11-16] VITALS (8 sets, daily range): BP systolic 117–146; BP diastolic 55–69; PULSE 2–86; BMI 29.6
--- NOTE | 2025-11-16 05:53 | W.PN.GI.CBS2 ---
Today's Communication / Plan
-
Continue prep this afternoon and keep NPO at MN. Plan for colonoscopy tomorrow, 11/17/25, for further evaluation of melena. Rest of care as outlined below.
Assessment / Plan
-
This is a 89yo male presents with 2 days black stools, heme positive in ER. On xarelto for Afib, last dose couple days ago. Takes rare NSAIDs for leg pain. Gets colonoscopies at [facility], last couple years ago. No prior EGD. Hgb 8.9 on admission and
rpt stable 8.6. Baseline 9-10 range. Cardiology consulted for ECG changes, trop peak 0.042, suspect nonischemic myocardial injury.
#Melena
#Afib on xarelto last dose 11/10
#Acute on Chronic Anemia
#Hx of Colon Polyps (Last colon OSH 1-2 years ago?)
Recent prior EGD 11/13/25 unremarkable and without any source to explain patient's presentation. Discussed pursuing a colonoscopy on 11/13 after EGD however patient declined colonoscopy. Was eventually restarted on xarelto evening on 11/13 as
favored monitoring while in house given concern for rebleeding. Hgb trended up 9.0 -> 10.1 -> 10.5 however had recurrent dark black stools concerning for melena on 11/14 once a/c restarted. Otherwise, remains HD-stable however drop in Hgb 10.5 ->
8.9 -> 8.6 further suggestive of likely LGIB source given restarting anticoagulation. Patient now amenable in regards to proceeding with a colonoscopy while inpatient. However, given timing of xarelto (last dose evening on 11/13-) would need to
pursue colonoscopy on 11/17/25, to allow 2-day wash-out. Otherwise, no signs to suggest brisk GI bleeding at this time.
Recommendations:
- Continue CLD, keep NPO at MN
- Trend Hgb with serial CBC, transfuse for goal Hgb > 8.0
- PPI 40 mg once daily
- Continue bowel prep, start Nulytely prep later this afternoon for 2-day clean-out
- Plan for colonoscopy tomorrow, 11/17/25, for further evaluation of melena given timing of xarelto. If unremarkable, would consider eventual VCE as outpatient
- Continue to hold xarelto while inpatient (last dose in evening of 11/13-)
- Avoidance of all NSAIDs
- Rest of care as per primary team
GI will continue to follow, call with questions/concerns.
Subjective
Subjective
Date of Service: November 16, 2025
- No acute events overnight, started prep on 11/15
Resting comfortably, drinking rest of Miralax prep at bedside. Unaware of any further dark or bloody stools. Continues to deny any abdominal pain. Discussed ongoing prep this afternoon with plans for colonoscopy tomorrow, 11/17/25.
Objective
Data Reviewed
Laboratory Data:
Laboratory Results
PT 19.1 Sec (11.4-14.6) H 11/11/25 16:21
INR 1.64 11/11/25 16:21
Magnesium 2.2 mg/dl (1.6-2.3) 11/12/25 05:07
Total Bilirubin 0.8 mg/dl (0.2-1.3) 11/15/25 05:51
AST 19 U/L (17-59) 11/15/25 05:51
ALT 10 U/L (0-50) 11/15/25 05:51
Alkaline Phosphatase 90 U/L (38-126) 11/15/25 05:51
Lipase 37 U/L (23-300) 11/11/25 16:21
Vital Signs and I&O:
Vital Signs
Temp Pulse Resp BP Pulse Ox
97.4 F 60 20 146/69 95
11/16/25 04:29 11/16/25 04:29 11/16/25 04:29 11/16/25 04:29 11/16/25 04:29
I&O
11/14/25 11/15/25 11/16/25
06:59 06:59 06:59
Intake Total 240 / 240 240 / 240
Output Total 900 / 900 1150 / 1150 950 / 950
Balance -660 / -660 -1150 / -1150 -710 / -710
Physical Exam
Physical Exam
HEENT: Anicteric and Moist mucous membranes
Pulmonary: Other (Normal WOB on room air)
GI: Soft, Non Distended and Non Tender
Extremities: No Edema
Neuro: Non Focal
[2025-11-16] MEDS: PROTONIX 40 MG PO (07:49)
[2025-11-16] MEDS: LASIX 40 MG PO ×2 (07:49→17:30)
[2025-11-16] MEDS: TOPROL XL 50 MG PO ×2 (07:49→21:09)
[2025-11-16] MEDS: CYMBALTA DELAYED RELEASE 30 MG PO (07:49)
[2025-11-16] MEDS: SYMBICORT 160/4.5 MCG INHALER 2 PUFF INH ×2 (08:34→19:40)
[2025-11-16] MEDS: SPIRIVA RESPIMAT 2.5 MCG 2 PUFF INH (08:35)
--- NOTE | 2025-11-16 09:40 | W.PN.HOSP.TC ---
Addendum entered and electronically signed by Ignacio Noriega, 11/17/25 16:22:
CDI:
-Heart failure decompensation was present previously on hospital stay though euvolemic by time of my assessment on day 1 of service
-Rectal bleeding very likely enhanced/associated with Xarelto
Original Note:
Today's Communication/Plan
-
planned for colonoscopy tomorrow 11/17/2025
currently on clear liquid , NPO After MD
continue holding Xarelto, last dose 11/13/2025
plan to start gentle Miralex prep today
Assessment / Plan
Assessment / Plan
89-year-old male from [facility] where he moved in on 11/12/2025. He reports he has had rectal bleeding x 2 days black in color. He is on Xarelto for A-fib. The pt States he had Some rectal bleeding about 1 year ago that was
contributed to hemorrhoids. He denies any recent colonoscopy. The patient denies chest pain, palpitations, shortness of breath, dizziness, headache, fever, chills, abdominal pain, nausea, vomiting, diarrhea, urinary symptoms. Medical history
includes CHF, CAD/CABG 1993, HLD, asthma, ex-smoker, sleep apnea/CPAP 08/31, GERD, osteoarthritis, radical prostatectomy 1996, chronic bilateral leg lymphedema
11/12/2025: I spoke with his daughter Anne and updated who stated that he had multiple hematuria with his hx of prostate cancer the pig machine supervisor scheduled him for watchman procedure to be done on 12/30/2025 to be off Xarelto. she stated that two days
ago had black stool but yesterday was a maroon colored stool.
11/13/2025: pt reported to the GI that he doesnt want to proceed with colonoscopy , Hi stated that he had a colonoscopy this year at [facility] with Dr Ryan and multiple polyps had been removed.
had bowel movement no blood , brown color stool.
11/14/2025: AFVSS, pt had rectal bleeding today, Green Chainer consulted and the Xarelto held for colonoscopy to be done on Sunday11/17/2025
11/15/2025, had total of two GI bleeding yesterday, and one overnight. this morning he had bradycardia , his Lasix and metoprolol morning dose was held
11/16 brown stool, no blood, on clear liquid, miralx prep.
Plan:
Admit to telemetry
#Rectal bleeding with anemia concern for lower GI bleed
-Hx of GERD
-Hx of Hemorrhoids 1 year ago with rectal bleeding, last colonoscopy was several years ago at [place] with polyps
-Bedside Hemoccult positive ER
-rectal exam , black stool
-Hgb 8.9->8.9 was 9.2 on outpatient labs on 10/31 today 9.0-->10-->8.9-->10.5-->8.9--9.2
-Type and screen
-blood consent obtained and scanned to chart
-Consult GI
-Protonix 80 mg given in ER
-started on pantoprazole 40 mg BID PO
-Xarelto resumed 11/13/2025 at 10 pm after EGD , held back 11/15/25 due to GI bleeding
-on clear liquid
-EGD done today , no active source of bleeding found biopsy taken. No need for colonoscopy , per pt he had a colonoscopy this year with dr Ryan , [facility] follow up with pt GI as an out pt.
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
-on telemetry
-no current symptoms
#elevated troponin
-0.042--0.041--0.041
-No ischemic changes per EKG
-asymptomatic
-will monitor
-Echo today EF 56 % improved from 2021 35-40%
Mild to moderate mitral valve regurgitation.
Mild to moderate tricuspid regurgitation. Estimated pulmonary artery pressure of 51 mmHg assuming a right atrial pressure of 8 mmHg.
Bilateral pleural effusion is noted.
-consult [facility]ology
-get old records from [facility]
#A-fib- permanent
- Xarelto resumed 11/13/2025 after EGD, held on 11/15/2025 due to rebleeding per GI
-reduced metoprolol succinate 100 mg twice daily yesterday per cardiology due to bradycardia.
- EKG : Afib 73 bpm, Bifasciular block qtc 511 ms T wave inversion anterior leads
#Hypertension
-BP 130/61
-cont reduced dose Metoprolol succ 100 mg bid to 50 mg BID , Lasix 40 mg bid
-hold , Lisinopril 2.5 mg qpm
#CHF with chronic bilateral leg lymphedema
-B-BNP 3940
-I/o daily weight
-cont Lasix 40 mg bid
#CAD/CABG 1993
- cont BB, Statin
#Asthma
cont dupixent q2 weeks , Breztri inhaler, Singulari 10 mg hs
#Anxiety
cont Duloxetine 30 mg daily
#ex-smoker
#Sleep apnea/CPAP 08/31
Other PMH:
osteoarthritis
radical prostatectomy 1996
DVT proph
scd's hold Xarelto
Anticipated Discharge: > 48 hours
Subjective/Interval History
-
Date of Service: November 16, 2025
He had brown color bowel movement this morning without blood. He denies chest pain, shortness of breath, abdominal pain, lightheaded, dizziness.
Objective Data
-
Labs:
Laboratory Results
11/16/25
09:11
WBC Pending
Hgb Pending
Hct Pending
Plt Count Pending
Sodium Pending
Potassium Pending
Chloride Pending
Carbon Dioxide Pending
BUN Pending
Creatinine Pending
Glucose Pending
Calcium Pending
Total Bilirubin Pending
AST Pending
ALT Pending
Alkaline Phosphatase Pending
Vital Signs:
Vital Signs
Temp Pulse Resp BP Pulse Ox
98 F 65 12 146/69 99
11/16/25 07:00 11/16/25 07:00 11/16/25 07:00 11/16/25 07:49 11/16/25 07:00
I&O
11/15/25 11/16/25 11/17/25
06:59 06:59 06:59
Intake Total 240 / 240
Output Total 1150 / 1150 950 / 950
Balance -1150 / -1150 -710 / -710
Review of Systems
-
History Source: Patient
Respiratory: Reports No Symptoms
Cardiac: Reports No Symptoms
Abdomen/GI: Reports No Symptoms
Genitourinary: Reports No Symptoms
Neuro: Reports No Symptoms
Physical Exam
-
Respiratory: Clear to Auscultation
Cardiac: Regular Rhythm, S1/S2 and Murmur
GI: Soft, Nontender and Nondistended
Skin: Warm and Dry
Neuro: Awake, Alert, Oriented and AO x 3
Psych: Calm
[2025-11-16 09:56] LABS: Hematocrit 27.7 % (39.0-52.0); Hemoglobin 9.2 g/dL (13.0-18.0); Mean Corp Hgb Conc. 33.2 g/dL (33.0-37.0); Mean Corpuscular Volume 94.5 fL (80.0-94.0); Platelet Count 142 10^3/uL (130-400); Red Cell Dist. Width 14.9 % (11.5-14.5)
[2025-11-16 10:25] LABS: ALT (SGPT) 10 U/L (0-50); AST (SGOT) 18 U/L (17-59); Albumin 3.2 g/dl (3.5-5.0); Alkaline Phosphatase 94 U/L (38-126); Blood Urea Nitrogen 10 mg/dl (9-20); Calcium 9.1 mg/dl (8.4-10.2); Carbon Dioxide 25 mmol/L (22-30); Chloride 104 mmol/L (98-107); Estimated Creatinine Clearance 55 ml/min; Glucose 111 mg/dl (70-99); Potassium 3.8 mmol/L (3.5-5.1); Sodium 134 mmol/L (135-145); Total Protein 6.6 g/dl (6.3-8.2); eGFR > 60.00
--- NOTE | 2025-11-16 11:56 | CM ---
Chart reviewed.
Plan for colonoscopy tomorrow
Last therapy eval 11/12, recommended SNF. Multiple attempts to see after that, patient declined last two times
Will cont to follow therapy and discuss SNF w/ patient if that continues to be the recommendation
Plan: SNF vs home
[2025-11-16] MEDS: LIPITOR 40 MG PO (17:31)
[2025-11-16] MEDS: NULYTELY SOLUTION 4 LITERS PO (17:31)
[2025-11-16] MEDS: SINGULAIR 10 MG PO (21:11)
--- NOTE | 2025-11-16 23:04 | PTCARENOTE ---
Addendum entered by Citlaly Borja RN 11/17/25 00:26:
Pt refuses to continue with the bowel prep. He was informed about the need to finish drinking so colonoscopy have better results.
Original Note:
pt AAOx3 forgetful at times. Pt hasn't been to compliant with the bowel prep. Pt hasn't drink enough, only about 1/3 what was order. Will encourage to drink more. Bowel movement still appears dark liquid.
[2025-11-17 03:35] VITALS: PULSE 2
[2025-11-17 05:23] VITALS: BMI 29.7
--- NOTE | 2025-11-17 07:14 | W.PN.HOSP.TC ---
Today's Communication/Plan
-
Continue hold Xarelto
appreciate Gastrology following and reccs:
-planned for colonoscopy today (poor bowel preparation)
-plan for colonoscopy tomorrow
-repeat prep with MiraLAX today
-plan for a CT angiogram
-try to get the colonoscopy report from [facility] , to see if he had any colonic angioectasias, as per he did have a few colon polyps removed last year with Dr. Ryan
Continue PPI
Continue trending H&H
Assessment / Plan
Assessment / Plan
89-year-old male from [facility] where he moved in on 11/12/2025. He reports he has had rectal bleeding x 2 days black in color. He is on Xarelto for A-fib. The pt States he had Some rectal bleeding about 1 year ago that was
contributed to hemorrhoids. He denies any recent colonoscopy. The patient denies chest pain, palpitations, shortness of breath, dizziness, headache, fever, chills, abdominal pain, nausea, vomiting, diarrhea, urinary symptoms. Medical history
includes CHF, CAD/CABG 1993, HLD, asthma, ex-smoker, sleep apnea/CPAP 08/31, GERD, osteoarthritis, radical prostatectomy 1996, chronic bilateral leg lymphedema
11/12/2025: I spoke with his daughter Anne and ubaldo who stated that he had multiple hematuria with his hx of prostate cancer the contact center engineer scheduled him for watchman procedure to be done on 12/30/2025 to be off Xarelto. she stated that two days
ago had black stool but yesterday was a maroon colored stool.
11/13/2025: pt reported to the GI that he doesnt want to proceed with colonoscopy , Hi stated that he had a colonoscopy this year at [facility] with Dr Ryan and multiple polyps had been removed.
had bowel movement no blood , brown color stool.
11/14/2025: AFVSS, pt had rectal bleeding today, Director Gift consulted and the Xarelto held for colonoscopy to be done on Sunday11/17/2025
11/15/2025, had total of two GI bleeding yesterday, and one overnight. this morning he had bradycardia , his Lasix and metoprolol morning dose was held
11/16 brown stool, no blood, on clear liquid, miralx prep. Didn't drink the full 4 litter of Colyte required for colon prep
11/17/2025: his stool not clear , still brown and colonoscopy cancelled today due to poor preparation
11/18/2025 : colonoscopy
Plan:
Admit to telemetry
#Rectal bleeding with anemia concern for lower GI bleed
-Hx of GERD
-Hx of Hemorrhoids 1 year ago with rectal bleeding, last colonoscopy was several years ago at [place] with polyps
-Bedside Hemoccult positive ER
-rectal exam , black stool
-Hgb 8.9->8.9 was 9.2 on outpatient labs on 10/31 today 9.0-->10-->8.9-->10.5-->8.9--9.2--8.1
-Type and screen
-blood consent obtained and scanned to chart
-Consult GI
-Protonix 80 mg given in ER
-started on pantoprazole 40 mg BID PO
-Xarelto resumed 11/13/2025 at 10 pm after EGD , held back 11/15/25 due to GI bleeding
-on clear liquid
-EGD done today , no active source of bleeding found biopsy taken. No need for colonoscopy , per pt he had a colonoscopy this year with dr Ryan , [facility]
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
-on telemetry
-no current symptoms
#elevated troponin
-0.042--0.041--0.041
-No ischemic changes per EKG
-asymptomatic
-will monitor
-Echo today EF 56 % improved from 2021 35-40%
Mild to moderate mitral valve regurgitation.
Mild to moderate tricuspid regurgitation. Estimated pulmonary artery pressure of 51 mmHg assuming a right atrial pressure of 8 mmHg.
Bilateral pleural effusion is noted.
-consult [facility]
-get old records from [facility]
#A-fib- permanent
- Xarelto resumed 11/13/2025 after EGD, held on 11/15/2025 due to rebleeding per GI
-reduced metoprolol succinate 100 mg twice daily yesterday per cardiology due to bradycardia.
- EKG : Afib 73 bpm, Bifasciular block qtc 511 ms T wave inversion anterior leads
#Hypertension
-BP 130/61
-cont reduced dose Metoprolol succ 100 mg bid to 50 mg BID , Lasix 40 mg bid
-hold , Lisinopril 2.5 mg qpm
#CHF with chronic bilateral leg lymphedema
-B-BNP 3940
-I/o daily weight
-cont Lasix 40 mg bid
#CAD/CABG 1993
- cont BB, Statin
#Asthma
cont dupixent q2 weeks , Breztri inhaler, Singulari 10 mg hs
#Anxiety
cont Duloxetine 30 mg daily
#ex-smoker
#Sleep apnea/CPAP 08/31
Other PMH:
osteoarthritis
radical prostatectomy 1996
DVT proph
scd's hold Xarelto
Anticipated Discharge: 24 - 48 hours
Subjective/Interval History
-
Date of Service: November 17, 2025
No overnight events. He has had bowel moments this morning was brown liquid without blood. He was not able to complete the full 4 litter of colyte for bowel preparation , only 1/3 per nurse. He denied chest pain, shortness of breath, abd pain,
palpitation.
Objective Data
-
Labs:
Laboratory Results
11/17/25
06:00
WBC Pending
Hgb Pending
Hct Pending
Plt Count Pending
Sodium Pending
Potassium Pending
Chloride Pending
Carbon Dioxide Pending
BUN Pending
Creatinine Pending
Glucose Pending
Calcium Pending
Total Bilirubin Pending
AST Pending
ALT Pending
Alkaline Phosphatase Pending
Vital Signs:
Vital Signs
Temp Pulse Resp BP Pulse Ox
97.5 F 63 18 133/55 99
11/16/25 23:00 11/16/25 23:00 11/16/25 23:00 11/16/25 23:00 11/16/25 23:00
I&O
11/16/25 11/17/25 11/18/25
06:59 06:59 06:59
Intake Total 240 / 240 480 / 480
Output Total 950 / 950 775 / 775
Balance -710 / -710 -295 / -295
Review of Systems
-
History Source: Patient
Respiratory: Reports No Symptoms
Cardiac: Reports No Symptoms
Abdomen/GI: Reports No Symptoms
Genitourinary: Reports No Symptoms
Neuro: Reports No Symptoms
Physical Exam
-
Respiratory: Clear to Auscultation
Cardiac: Regular Rhythm, S1/S2 and Murmur
GI: Soft, Nontender and Nondistended
Musculoskeletal: No Edema (mild bilateral leg edema)
Skin: Warm and Dry
Neuro: Awake, Alert, Oriented and AO x 3
Psych: Calm
[2025-11-17 07:50] VITALS: BP 136/64
[2025-11-17 08:02] LABS: ALT (SGPT) < 10 U/L (0-50); AST (SGOT) 14 U/L (17-59); Albumin 2.9 g/dl (3.5-5.0); Alkaline Phosphatase 87 U/L (38-126); Blood Urea Nitrogen 8 mg/dl (9-20); Calcium 8.9 mg/dl (8.4-10.2); Carbon Dioxide 26 mmol/L (22-30); Chloride 105 mmol/L (98-107); Estimated Creatinine Clearance 61 ml/min; Glucose 105 mg/dl (70-99); Potassium 3.7 mmol/L (3.5-5.1); Sodium 134 mmol/L (135-145); Total Protein 6.0 g/dl (6.3-8.2); eGFR > 60.00
[2025-11-17] MEDS: SPIRIVA RESPIMAT 2.5 MCG 2 PUFF INH (08:08)
[2025-11-17] MEDS: SYMBICORT 160/4.5 MCG INHALER 2 PUFF INH ×2 (08:08→19:34)
[2025-11-17 08:27] LABS: Hematocrit 24.5 % (39.0-52.0); Hemoglobin 8.1 g/dL (13.0-18.0); Mean Corp Hgb Conc. 33.1 g/dL (33.0-37.0); Mean Corpuscular Volume 93.9 fL (80.0-94.0); Platelet Count 143 10^3/uL (130-400); Red Cell Dist. Width 14.9 % (11.5-14.5)
[2025-11-17] MEDS: TOPROL XL 50 MG PO ×2 (09:03→21:22)
[2025-11-17] MEDS: PROTONIX 40 MG PO (09:03)
[2025-11-17] MEDS: LASIX 40 MG PO ×2 (09:03→16:25)
[2025-11-17] MEDS: CYMBALTA DELAYED RELEASE 30 MG PO (09:03)
[2025-11-17 09:22] VITALS: BMI 29.7
--- NOTE | 2025-11-17 13:04 | W.PN.GI.CBS2 ---
Today's Communication / Plan
-
Attempt repeat prep today for colonoscopy tomorrow
CTA
Assessment / Plan
-
This is a 89yo male presents with 2 days black stools, heme positive in ER. On xarelto for Afib, last dose couple days ago. Takes rare NSAIDs for leg pain. Gets colonoscopies at [facility], last couple years ago. No prior EGD. Hgb 8.9 on admission and
rpt stable 8.6. Baseline 9-10 range. Cardiology consulted for ECG changes, trop peak 0.042, suspect nonischemic myocardial injury.
#Melena
#Afib on xarelto last dose 11/10
#Acute on Chronic Anemia
#Hx of Colon Polyps (Last colon OSH 1-2 years ago?)
Recent prior EGD 11/13/25 unremarkable and without any source to explain patient's presentation. Discussed pursuing a colonoscopy on 11/13 after EGD however patient declined colonoscopy. Was eventually restarted on xarelto evening on 11/13 as
favored monitoring while in house given concern for rebleeding. Hgb trended up 9.0 -> 10.1 -> 10.5 however had recurrent dark black stools concerning for melena on 11/14 once a/c restarted. Otherwise, remains HD-stable however drop in Hgb 10.5 ->
8.9 -> 8.6 further suggestive of likely LGIB source given restarting anticoagulation. Patient now amenable in regards to proceeding with a colonoscopy while inpatient. However, given timing of xarelto (last dose evening on 11/13-) would need to
pursue colonoscopy on 11/17/25, to allow 2-day wash-out. Otherwise, no signs to suggest brisk GI bleeding at this time.
Recommendations:
11/17 unable to perform colonoscopy he was not cleared he was only able to drink half the prep
Discussed at length with the patient and his over the telephone will attempt to repeat prep with MiraLAX today and try to do the colonoscopy tomorrow
Will also get a CT angiogram although may be negative since the bleeding seems to have slowed down and the stool in his rectal bag seems to be more thick brown now and not black or red
Will need to try to get the colonoscopy report from [facility] to see if he had any colonic angioectasias, as per he did have a few colon polyps removed last year with Dr. Ryan
Continue PPI
Trend hemoglobin
Likely bleeding could be related to colonic or small bowel angioectasias less likely neoplasm since he had a colonoscopy recently at outside hospital and most likely will need a capsule endoscopy as outpatient
Continue to hold Xarelto for now
Noted input from cardiology he is scheduled for Watchman on 12/01/2024 since he also has hematuria from prior radiation treatment for his prostate cancer
Subjective
Subjective
Date of Service: November 17, 2025
Patient was unable to finish his bowel prep and was only able to drink half of the GoLytely. He has thick brown stool in the rectal bag and was not cleared so colonoscopy had to be canceled. He currently denies any abdominal pain
Objective
Data Reviewed
Laboratory Data:
Laboratory Results
11/17/25 07:22
11/17/25 07:22
Laboratory Results
PT 19.1 Sec (11.4-14.6) H 11/11/25 16:21
INR 1.64 11/11/25 16:21
Magnesium 2.2 mg/dl (1.6-2.3) 11/12/25 05:07
Total Bilirubin 0.7 mg/dl (0.2-1.3) 11/17/25 07:22
AST 14 U/L (17-59) L 11/17/25 07:22
ALT < 10 U/L (0-50) 11/17/25 07:22
Alkaline Phosphatase 87 U/L (38-126) 11/17/25 07:22
Lipase 37 U/L (23-300) 11/11/25 16:21
Vital Signs and I&O:
Vital Signs
Temp Pulse Resp BP Pulse Ox
97.9 F 67 16 136/64 97
11/17/25 07:50 11/17/25 08:11 11/17/25 08:11 11/17/25 09:03 11/17/25 07:50
I&O
11/16/25 11/17/25 11/18/25
06:59 06:59 06:59
Intake Total 240 / 240 480 / 480
Output Total 950 / 950 775 / 775
Balance -710 / -710 -295 / -295
Physical Exam
Physical Exam
Cardiology: Irregular Rate/Rhythm and Murmur (Systolic murmur)
Pulmonary: Clear
GI: Soft, Non Distended, Non Tender and Normal Bowel Sounds
--- NOTE | 2025-11-17 13:59 | CM ---
Chart reviewed. Colonoscopy postponed to tomorrow since he was not able to complete bowel prep
[2025-11-17 15:20] VITALS: BP 143/73
--- NOTE | 2025-11-17 15:44 | PN.CDI ---
CDI
- -
CDI:
Physician Documentation Request
Admit Date: 11/11/25 19:30
Dear Doctor Yesenia and Dr. Noriega,
Please review the following and provide your response in the progress notes.
Clinical Indicators:
PN, 11/17
#ABLA secondary to rectal bleeding.
#...Differentials include diverticular, hemorrhoidal, other.
#...Holding home Xarelto with plans for colonoscopy morning of 11/17.
#Permanent AF.
#...Holding home Xarelto due to lower GI bleeding.
Laboratory Tests
11/11/25
16:21
PT 19.1 H
INR 1.64
Based on the above and your clinical assessment, please clarify the relationship, if any, between these conditions:
Yes, Rectal Bleeding is enhanced by/related to/associated with/due to Xarelto.
No, Rectal Bleeding is not enhanced by/related to/associated with/due to Xarelto but it is due to ___. (Please specify)
Other (please specify)
Use of terms such as suspected, likely, concern for, or probable (associated with a specific diagnosis that is being evaluated, monitored, or treated as if it exists) are acceptable and can be coded in the inpatient setting, when documented at the
time of discharge.
Thank you,
Adele Blackburn RN BSN CCDS
CDI Specialist
Please contact via tiger text
Please use your independent medical judgment in providing your response.
--- NOTE | 2025-11-17 15:50 | PN.CDI ---
CDI
- -
CDI:
Physician Documentation Request
Admit Date: 11/11/25 19:30
Dear Doctor Yesenia and Dr. Noriega,
Please review the following and provide your response in the progress notes.
Clinical Indicators:
The diagnosis of Acute on Chronic HFrEF was documented on 11/12, but is not consistently noted in subsequent documentation.
The purpose of this query is to ensure the accuracy of the conditions reported for your patient.
Cardiology Consult, 11/12
#Patient appears volume overloaded on exam with significant lower extremity edema
#...proBNP is elevated at 3940
#...Would continue IV Lasix twice daily as ordered
#Chronic HFrEF
#Suspected acute on chronic HFrEF
PN, 11/13
#HFimpEF
-repeat echo with ef from 35-40%->56%
-cont GDMT-toprol XL, lisinopril, SGLTi2, not on MRA
-cont PO lasix
Cardiology, PN, 11/14
#Suspected acute on chronic HFrEF
#HFmrEF:
#...- Volume overloaded on exam at the time of admission with proBNP 3900
#...- Would continue outpatient dose of Lasix at 40 mg p.o. twice daily
Based on the above and your clinical assessment, please clarify the most likely type and acuity of CHF evaluated, treated and/or monitored.
Acute on Chronic CHF (type systolic/diastolic) was present on admission and is now resolved.
Acute on Chronic CHF (type systolic/diastolic) was present on admission and is still being monitored, evaluated or treated
Acute CHF (type systolic/diastolic) was ruled out
Acute on Chronic CHF (type systolic/diastolic)is still a likely, suspected, probable diagnosis
Chronic CHF (type systolic/diastolic), only
Other(please specify)
Type: systolic, diastolic, combined or other type
Acuity: acute (new onset), chronic or acute on chronic
Type Acuity
Systolic Acute
Diastolic Chronic
Combined Systolic/Diastolic Acute on Chronic
Use of terms such as suspected, likely, concern for, or probable (associated with a specific diagnosis that is being evaluated, monitored, or treated as if it exists) are acceptable and can be coded in the inpatient setting, when documented at the
time of discharge.
Thank you,
Adele Blackburn RN BSN CCDS
CDI Specialist
Please contact via tiger text
Please use your independent medical judgment in providing your response.
[2025-11-17 16:24] VITALS: BP 141/73
[2025-11-17] MEDS: GAVILAX 238 GM PO (16:25)
[2025-11-17] MEDS: LIPITOR 40 MG PO (17:21)
[2025-11-17] MEDS: SINGULAIR 10 MG PO (21:22)
[2025-11-17] MEDS: DULCOLAX 20 MG PO (21:25)
[2025-11-17 22:06] VITALS: PULSE 2; PULSE 74
[2025-11-17 23:20] VITALS: BP 135/56
[2025-11-18] VITALS (7 sets, daily range): BP systolic 110–136; BP diastolic 55–63; PULSE 2–66; O2SAT 96; BMI 30.6
[2025-11-18 07:00] LABS: ALT (SGPT) < 10 U/L (0-50); AST (SGOT) 18 U/L (17-59); Albumin 3.2 g/dl (3.5-5.0); Alkaline Phosphatase 96 U/L (38-126); Blood Urea Nitrogen 9 mg/dl (9-20); Calcium 9.2 mg/dl (8.4-10.2); Carbon Dioxide 26 mmol/L (22-30); Chloride 104 mmol/L (98-107); Estimated Creatinine Clearance 62 ml/min; Glucose 87 mg/dl (70-99); Potassium 4.0 mmol/L (3.5-5.1); Sodium 135 mmol/L (135-145); Total Protein 6.6 g/dl (6.3-8.2); eGFR > 60.00
[2025-11-18 07:01] LABS: Hematocrit 26.4 % (39.0-52.0); Hemoglobin 8.6 g/dL (13.0-18.0); Mean Corp Hgb Conc. 32.6 g/dL (33.0-37.0); Mean Corpuscular Volume 94.3 fL (80.0-94.0); Platelet Count 143 10^3/uL (130-400); Red Cell Dist. Width 14.7 % (11.5-14.5)
--- NOTE | 2025-11-18 07:09 | W.PN.HOSP.TC ---
Today's Communication/Plan
-
Colonoscopy done today
CTA of the abdomen and pelvis done today
plan to resume Xarelto tonight at 9 pm
plan to discharge tomorrow if no rectal bleeding and if Hb remained stable
Assessment / Plan
Assessment / Plan
89-year-old male from [facility] where he moved in on 11/12/2025. He reports he has had rectal bleeding x 2 days black in color. He is on Xarelto for A-fib. The pt States he had Some rectal bleeding about 1 year ago that was
contributed to hemorrhoids. He denies any recent colonoscopy. The patient denies chest pain, palpitations, shortness of breath, dizziness, headache, fever, chills, abdominal pain, nausea, vomiting, diarrhea, urinary symptoms. Medical history
includes CHF, CAD/CABG 1993, HLD, asthma, ex-smoker, sleep apnea/CPAP 08/31, GERD, osteoarthritis, radical prostatectomy 1996, chronic bilateral leg lymphedema
11/12/2025: I spoke with his daughter Gulshan who stated that he had multiple hematuria with his hx of prostate cancer the drawbench operator helper scheduled him for watchman procedure to be done on 12/30/2025 to be off Xarelto. she stated that two days
ago had black stool but yesterday was a maroon colored stool.
11/13/2025: pt reported to the GI that he doesnt want to proceed with colonoscopy , Hi stated that he had a colonoscopy this year at [facility] with Dr Ryan and multiple polyps had been removed.
had bowel movement no blood , brown color stool.
11/14/2025: AFVSS, pt had rectal bleeding today, Scanning Coordinator consulted and the Xarelto held for colonoscopy to be done on Sunday11/17/2025
11/15/2025, had total of two GI bleeding yesterday, and one overnight. this morning he had bradycardia , his Lasix and metoprolol morning dose was held
11/16 brown stool, no blood, on clear liquid, miralx prep. Didn't drink the full 4 litter of Colyte required for colon prep
11/17/2025: his stool not clear , still brown and colonoscopy cancelled today due to poor preparation
11/18/2025 : colonoscopy , CTA, resume Xarelto at 9pm today , cardiology consulted for resuming Xarelto
Plan:
Admit to telemetry
#Rectal bleeding with anemia concern for lower GI bleed
-Hx of GERD
-Hx of Hemorrhoids 1 year ago with rectal bleeding, last colonoscopy was several years ago at [place] with polyps
-Bedside Hemoccult positive ER
-rectal exam , black stool
-Hgb 8.9->8.9 was 9.2 on outpatient labs on 10/31 today 9.0-->10-->8.9-->10.5-->8.9--9.2--8.1
-Type and screen
-blood consent obtained and scanned to chart
-Consult GI
-Protonix 80 mg given in ER
-started on pantoprazole 40 mg BID PO
-Xarelto resumed 11/13/2025 at 10 pm after EGD , held back 11/15/25 due to GI bleeding, will be resumed today 11/18 at 9
-on clear liquid
-EGD done today , no active source of bleeding found biopsy taken. No need for colonoscopy , per pt he had a colonoscopy this year with dr Ryan , [facility] follow up with pt GI as an out pt.
-colonoscopy 11/18,
-Diverticulosis in the sigmoid colon, in the descending colon, in
the ascending colon and in the transverse colon.
- Four 3 to 10 mm polyps in the ascending colon, in the transverse
colon, in the descending colon and in the cecum. Resection not
attempted.
- Given recent GI bleed and need to restart anticoagulation
polypectomy not attempted.
- A single (solitary) ulcer in the distal rectum.
- Internal hemorrhoids.
- The examined portion of the ileum was normal.
- No specimens collected.
CTA od abd and pelvis 11/18
1.No overt CTA evidence for active GI bleed.
2. Suspect acute uncomplicated pancolitis, likely of infectious/inflammatory etiology.
3. Partially visualized bilateral pleural effusions, left greater than right.
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
-on telemetry
-no current symptoms
#elevated troponin
-0.042--0.041--0.041
-No ischemic changes per EKG
-asymptomatic
-will monitor
-Echo today EF 56 % improved from 2021 35-40%
Mild to moderate mitral valve regurgitation.
Mild to moderate tricuspid regurgitation. Estimated pulmonary artery pressure of 51 mmHg assuming a right atrial pressure of 8 mmHg.
Bilateral pleural effusion is noted.
-consult [facility] cardiology
-get old records from [facility]
#A-fib- permanent
- Xarelto resumed 11/13/2025 after EGD, held on 11/15/2025 due to rebleeding per GI
-reduced metoprolol succinate 100 mg twice daily yesterday per cardiology due to bradycardia.
- EKG : Afib 73 bpm, Bifasciular block qtc 511 ms T wave inversion anterior leads
#Hypertension
-BP 130/61
-cont reduced dose Metoprolol succ 100 mg bid to 50 mg BID , Lasix 40 mg bid
-hold , Lisinopril 2.5 mg qpm
#CHF with chronic bilateral leg lymphedema
-B-BNP 3940
-I/o daily weight
-cont Lasix 40 mg bid
#CAD/CABG 1993
- cont BB, Statin
#Asthma
cont dupixent q2 weeks , Breztri inhaler, Singulari 10 mg hs
#Anxiety
cont Duloxetine 30 mg daily
#ex-smoker
#Sleep apnea/CPAP 08/31
Other PMH:
osteoarthritis
radical prostatectomy 1996
DVT proph
scd's hold Xarelto
Anticipated Discharge: 24 - 48 hours
Subjective/Interval History
-
Date of Service: November 18, 2025
No overnight events, Has no abd pain or shortness of breath, denied abdiminal pain , nausea , vomiting. No recent GI bleeding
Objective Data
-
Labs:
Laboratory Results
11/18/25
05:42
WBC 3.4 L
Hgb 8.6 L
Hct 26.4 L
Plt Count 143
Sodium 135
Potassium 4.0
Chloride 104
Carbon Dioxide 26
BUN 9
Creatinine 1.0
Glucose 87
Calcium 9.2
Total Bilirubin 1.0
AST 18
ALT < 10
Alkaline Phosphatase 96
Vital Signs:
Vital Signs
Temp Pulse Resp BP Pulse Ox
99.3 F 64 18 135/56 99
11/17/25 23:20 11/17/25 23:20 11/17/25 23:20 11/17/25 23:20 11/17/25 23:20
I&O
11/17/25 11/18/25 11/19/25
06:59 06:59 06:59
Intake Total 480 / 480 960 / 960
Output Total 775 / 775 300 / 300
Balance -295 / -295 660 / 660
Review of Systems
-
History Source: Patient
Respiratory: Reports No Symptoms
Cardiac: Reports No Symptoms
Abdomen/GI: Reports No Symptoms
Genitourinary: Reports No Symptoms
Neuro: Reports No Symptoms
Physical Exam
-
Respiratory: Clear to Auscultation
Cardiac: Regular Rhythm, S1/S2 and Murmur
GI: Soft, Nontender and Nondistended
Musculoskeletal: No Edema (mild bilateral leg edema)
Skin: Warm and Dry
Neuro: Awake, Alert, Oriented and AO x 3
Psych: Calm
[2025-11-18] MEDS: SYMBICORT 160/4.5 MCG INHALER 2 PUFF INH (07:20)
[2025-11-18] MEDS: SPIRIVA RESPIMAT 2.5 MCG 2 PUFF INH (07:20)
[2025-11-18] MEDS: CYMBALTA DELAYED RELEASE PO (09:03)
[2025-11-18] MEDS: LASIX PO (09:03)
[2025-11-18] MEDS: PROTONIX PO (09:04)
[2025-11-18] MEDS: TOPROL XL PO ×2 (09:04→20:59)
--- NOTE | 2025-11-18 14:03 | CM ---
Spoke with pt and Anne seymour [phone] . is unsure she can care for him in home.
Anne seymour said they do not ant him dc till Xarelto issue resolved. They are unsure about restarting med.
Pt is refusing SNF. Pt would need an auth.No Beds at [facility] .
PLAN Ongoing DC plan
--- NOTE | 2025-11-18 14:45 | W.PN.UPDATE ---
Update Note
Progress Note Update
Colonoscopy today, 11/18/25 finds:
No bleeding was present. No stigmata of recent bleeding were seen.
GI concludes that bleeding could have been related to possible small bowel angiectasias versus from diverticulosis or the rectal stercoral ulcer
Looks like further GI evaluation is planned as outpatient
From a cardiology standpoint would resume OAC if it is felt that adequate acute hemostasis has been achieved with the understanding that long-term plan is Watchman LUKE occlusion which can reduce skilled nursing exposure to OAC, typically stopping OAC 3
months post Watchman if device is found to be well seated and without thrombus at 3 month post implant EMILIE
While it is likely that we cannot know for sure, given there is no evidence of active bleeding and no stigmata of recent bleeding seen on endoscopy, I would conclude it is reasonable to resume OAC.
If GI and primary service agree, my rec is to resume rivaroxaban 20 mg daily
Additionally, discussed with Dr Eaton and would likely reduce OAC to rivaroxaban 15 mg daily or apixaban 2.5 mg daily post Watchman implantation.
At present, we are planning to maintain current plan for Watchman 12/01/25.
Please call back if needed.
[2025-11-18] MEDS: LIPITOR 40 MG PO (17:00)
[2025-11-18] MEDS: LASIX 40 MG PO (17:00)
[2025-11-18] MEDS: SYMBICORT 160/4.5 MCG INHALER INH (20:00)
[2025-11-18] MEDS: SINGULAIR 10 MG PO (21:02)
[2025-11-19 00:30] VITALS: PULSE 2; PULSE 78
[2025-11-19 05:24] VITALS: BMI 30.6
--- NOTE | 2025-11-19 06:59 | W.PN.HOSP.TC ---
Today's Communication/Plan
-
Resume Xarelto at home today
Discharged today
case therapist contacted for discharge plan
follow his cardiology and GI as an outpatient
CBC in 5 days after discharge
Assessment / Plan
Assessment / Plan
89-year-old male from [facility] where he moved in on 11/12/2025. He reports he has had rectal bleeding x 2 days black in color. He is on Xarelto for A-fib. The pt States he had Some rectal bleeding about 1 year ago that was
contributed to hemorrhoids. He denies any recent colonoscopy. The patient denies chest pain, palpitations, shortness of breath, dizziness, headache, fever, chills, abdominal pain, nausea, vomiting, diarrhea, urinary symptoms. Medical history
includes CHF, CAD/CABG 1993, HLD, asthma, ex-smoker, sleep apnea/CPAP 08/31, GERD, osteoarthritis, radical prostatectomy 1996, chronic bilateral leg lymphedema
11/12/2025: I spoke with his daughter Gulshan who stated that he had multiple hematuria with his hx of prostate cancer the hand leather trimmer scheduled him for watchman procedure to be done on 12/30/2025 to be off Xarelto. she stated that two days
ago had black stool but yesterday was a maroon colored stool.
11/13/2025: pt reported to the GI that he doesnt want to proceed with colonoscopy , Hi stated that he had a colonoscopy this year at [facility] with Dr Ryan and multiple polyps had been removed.
had bowel movement no blood , brown color stool.
11/14/2025: AFVSS, pt had rectal bleeding today, Opera Singer consulted and the Xarelto held for colonoscopy to be done on Sunday11/17/2025
11/15/2025, had total of two GI bleeding yesterday, and one overnight. this morning he had bradycardia , his Lasix and metoprolol morning dose was held
11/16 brown stool, no blood, on clear liquid, miralx prep. Didn't drink the full 4 litter of Colyte required for colon prep
11/17/2025: his stool not clear , still brown and colonoscopy cancelled today due to poor preparation
11/18/2025 : colonoscopy , CTA, resume Xarelto at 9pm today , cardiology consulted for resuming Xarelto
11/20/2025, Hb stable, no recent GI bleeding, pt will resume his Xarelto at home today
Plan:
Admit to telemetry
#Rectal bleeding with anemia concern for lower GI bleed
-Hx of GERD
-Hx of Hemorrhoids 1 year ago with rectal bleeding, last colonoscopy was several years ago at [place] with polyps
-Bedside Hemoccult positive ER
-rectal exam , black stool
-Hgb 8.9->8.9 was 9.2 on outpatient labs on 10/31 today 9.0-->10-->8.9-->10.5-->8.9--9.2--8.1
-Type and screen
-blood consent obtained and scanned to chart
-Consult GI
-Protonix 80 mg given in ER
-started on pantoprazole 40 mg BID PO
-Xarelto resumed 11/13/2025 at 10 pm after EGD , held back 11/15/25 due to GI bleeding, will be resumed today 11/18 at 9
-on clear liquid
-EGD done today , no active source of bleeding found biopsy taken. No need for colonoscopy , per pt he had a colonoscopy this year with dr Ryan , [facility] follow up with pt GI as an out pt.
-colonoscopy 11/18,
-Diverticulosis in the sigmoid colon, in the descending colon, in
the ascending colon and in the transverse colon.
- Four 3 to 10 mm polyps in the ascending colon, in the transverse
colon, in the descending colon and in the cecum. Resection not
attempted.
- Given recent GI bleed and need to restart anticoagulation
polypectomy not attempted.
- A single (solitary) ulcer in the distal rectum.
- Internal hemorrhoids.
- The examined portion of the ileum was normal.
- No specimens collected.
CTA od abd and pelvis 11/18
1.No overt CTA evidence for active GI bleed.
2. Suspect acute uncomplicated pancolitis, likely of infectious/inflammatory etiology.
3. Partially visualized bilateral pleural effusions, left greater than right.
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
-on telemetry
-no current symptoms
#elevated troponin
-0.042--0.041--0.041
-No ischemic changes per EKG
-asymptomatic
-will monitor
-Echo today EF 56 % improved from 2021 35-40%
Mild to moderate mitral valve regurgitation.
Mild to moderate tricuspid regurgitation. Estimated pulmonary artery pressure of 51 mmHg assuming a right atrial pressure of 8 mmHg.
Bilateral pleural effusion is noted.
-consult [facility] cardiology
-get old records from [facility]
#A-fib- permanent
- Xarelto resumed 11/13/2025 after EGD, held on 11/15/2025 due to rebleeding per GI
-reduced metoprolol succinate 100 mg twice daily yesterday per cardiology due to bradycardia.
- EKG : Afib 73 bpm, Bifasciular block qtc 511 ms T wave inversion anterior leads
#Hypertension
-BP 130/61
-cont reduced dose Metoprolol succ 100 mg bid to 50 mg BID , Lasix 40 mg bid
-hold , Lisinopril 2.5 mg qpm
#CHF with chronic bilateral leg lymphedema
-B-BNP 3940
-I/o daily weight
-cont Lasix 40 mg bid
#CAD/CABG 1993
- cont BB, Statin
#Asthma
cont dupixent q2 weeks , Breztri inhaler, Singulari 10 mg hs
#Anxiety
cont Duloxetine 30 mg daily
#ex-smoker
#Sleep apnea/CPAP 08/31
Other PMH:
osteoarthritis
radical prostatectomy 1996
DVT proph
scd's hold Xarelto
Anticipated Discharge: Today
Subjective/Interval History
-
Date of Service: November 19, 2025
No overnight event, He denied SOB, chest pain. He denied abd pain , nausea, vomiting , lightheadedness or palpitation. He stated that he wanted to go home today.
Objective Data
-
Labs:
Laboratory Results
11/19/25
06:00
WBC Pending
Hgb Pending
Hct Pending
Plt Count Pending
Sodium Pending
Potassium Pending
Chloride Pending
Carbon Dioxide Pending
BUN Pending
Creatinine Pending
Glucose Pending
Calcium Pending
Total Bilirubin Pending
AST Pending
ALT Pending
Alkaline Phosphatase Pending
Vital Signs:
Vital Signs
Temp Pulse Resp BP Pulse Ox
99.1 F 100 16 136/56 99
11/18/25 23:22 11/18/25 23:22 11/18/25 23:22 11/18/25 23:22 11/18/25 23:22
I&O
11/17/25 11/18/25 11/19/25
06:59 06:59 06:59
Intake Total 480 / 480 960 / 960
Output Total 775 / 775 300 / 300 700 / 700
Balance -295 / -295 660 / 660 -700 / -700
Review of Systems
-
History Source: Patient
Respiratory: Reports No Symptoms
Cardiac: Reports No Symptoms
Abdomen/GI: Reports No Symptoms
Genitourinary: Reports No Symptoms
Neuro: Reports No Symptoms
Physical Exam
-
Respiratory: Clear to Auscultation
Cardiac: Regular Rhythm, S1/S2 and Murmur
GI: Soft, Nontender and Nondistended
Musculoskeletal: No Edema (mild bilateral leg edema)
Skin: Warm and Dry
Neuro: Awake, Alert, Oriented and AO x 3
Psych: Calm
[2025-11-19 07:05] VITALS: BP 149/73
[2025-11-19] MEDS: SPIRIVA RESPIMAT 2.5 MCG 2 PUFF INH (08:03)
[2025-11-19] MEDS: SYMBICORT 160/4.5 MCG INHALER 2 PUFF INH (08:03)
[2025-11-19] MEDS: CYMBALTA DELAYED RELEASE 30 MG PO (09:45)
[2025-11-19] MEDS: PROTONIX 40 MG PO (09:45)
[2025-11-19] MEDS: TOPROL XL 50 MG PO (09:45)
[2025-11-19] MEDS: LASIX 40 MG PO ×2 (09:45→15:21)
--- NOTE | 2025-11-19 12:37 | CM ---
PT rec SNF vs. Home PT
Patient wants home with home health, agreeabl
Await labs
Options reviewed-prefers [facility]
wants wheelchair van to transport, discussed cost, agreeable
plan: Home with [facility]
wheelchair van, form on chart
[2025-11-19 13:12] LABS: Hematocrit 26.2 % (39.0-52.0); Hemoglobin 8.9 g/dL (13.0-18.0); Mean Corp Hgb Conc. 34.0 g/dL (33.0-37.0); Mean Corpuscular Volume 92.3 fL (80.0-94.0); Platelet Count 131 10^3/uL (130-400); Red Cell Dist. Width 14.7 % (11.5-14.5)
[2025-11-19 13:13] LABS: ALT (SGPT) 10 U/L (0-50); AST (SGOT) 16 U/L (17-59); Albumin 3.2 g/dl (3.5-5.0); Alkaline Phosphatase 96 U/L (38-126); Blood Urea Nitrogen 9 mg/dl (9-20); Calcium 8.9 mg/dl (8.4-10.2); Carbon Dioxide 23 mmol/L (22-30); Chloride 103 mmol/L (98-107); Estimated Creatinine Clearance 62 ml/min; Glucose 102 mg/dl (70-99); Potassium 3.8 mmol/L (3.5-5.1); Sodium 131 mmol/L (135-145); Total Protein 6.4 g/dl (6.3-8.2); eGFR > 60.00
--- NOTE | 2025-11-19 15:21 | W.PN.GI.CBS2 ---
Today's Communication / Plan
-
Resume AC
Ok from GI perspective for hosp d/c
Can FU with Dr Higgins in our office and consider OP VCE.
Assessment / Plan
-
This is a 89yo male presents with 2 days black stools, heme positive in ER. On xarelto for Afib, last dose couple days ago. Takes rare NSAIDs for leg pain. Gets colonoscopies at [facility], last couple years ago. No prior EGD. Hgb 8.9 on admission and
rpt stable 8.6. Baseline 9-10 range. Cardiology consulted for ECG changes, trop peak 0.042, suspect nonischemic myocardial injury.
Impression
#Melena
EGD/colon done this admission unclear cause 15mm solitary distal rectal stercoral ulcer seen with (3-10mm in size) polyps not removed.
#Afib on xarelto last dose 11/10
#Acute on Chronic Anemia
#Hx of Colon Polyps (Last colon OSH 1-2 years ago?)
Recommendations:
- Agree with resumption of anticoagulation after risk/benefit discussion with cardiology
- Agree with Watchman 12/01/25
- May benefit from OP video capsule to evaluate rest of small bowel. This can be arranged OP basis
- C/w low salt diet
- Thus far H/H stable
OK from GI perspective for hosp d/c today. He can FU with GI Dr Ryan at [facility] or here at [facility] with Dr Higgins. Will sign off please call for ?
Subjective
Subjective
Date of Service: November 19, 2025
He is tolerating diet. Denies any further BM. No abd pain, nausea/vomiting.
Objective
Data Reviewed
Laboratory Data:
Laboratory Results
11/19/25 12:18
11/19/25 12:18
Laboratory Results
PT 19.1 Sec (11.4-14.6) H 11/11/25 16:21
INR 1.64 11/11/25 16:21
Magnesium 2.2 mg/dl (1.6-2.3) 11/12/25 05:07
Total Bilirubin 0.8 mg/dl (0.2-1.3) 11/19/25 12:18
AST 16 U/L (17-59) L 11/19/25 12:18
ALT 10 U/L (0-50) 11/19/25 12:18
Alkaline Phosphatase 96 U/L (38-126) 11/19/25 12:18
Lipase 37 U/L (23-300) 11/11/25 16:21
Vital Signs and I&O:
Vital Signs
Temp Pulse Resp BP Pulse Ox
100.1 F 68 16 149/73 98
11/19/25 07:05 11/19/25 08:04 11/19/25 08:04 11/19/25 07:05 11/19/25 08:04
I&O
11/18/25 11/19/25 11/20/25
06:59 06:59 06:59
Intake Total 960 / 960
Output Total 300 / 300 700 / 700
Balance 660 / 660 -700 / -700
Physical Exam
Physical Exam
GEN: No acute distress, conversant, pleasant
HEENT: anicteric, extraocular movements intact, clear oropharynx without exudates
GI: soft, mildly-distended, not tender to palpation, normal active bowel sounds, no hepatosplenomegaly
EXT: warm, well perfused, no edema bilaterally ++diffuse bruising over arms bilaterally
NEURO: AAOx3, non-focal
[2025-11-19 15:39] VITALS: BP 128/65
--- NOTE | 2025-11-20 16:59 | CM ---
recieved call from daughter in law Anne - she requested he go to [facility].
she requested [facility] or [facility] - [facility] called no bed available today
Called Sarai at [facility] no bed available today, she has him on high priority for bed
Sarai stated she would be able to get authorization from [facility] dannie
explained to Anne that [facility], she was satisfied currently and was understanding that [facility] has him on high priority for SNF bed
--- NOTE | 2025-11-21 08:05 | W.DCSUMMARY ---
Documented by User: Brooks Patterson MD, Resident 11/21/25 09:24
Discharge Summary
Discharge Data
Date of Admission: 11/11/25
Date of Discharge: 11/19/25
-
Pending Results: Yes
Additional Pending Results:
Gastric biopsy results
Hospital Course
Discharging physician:
Ignacio Noriega
Brooks Patterson
Disposition:
Home with home care
Primary Care Physician:
Jason Irwin
Principal Discharge Diagnosis:
Rectal bleeding , new RBBB
Acute on Chronic anemia
Acute uncomplicated pancolitis
Bilateral pleural effusions, left greater than right.
Hyponatremia
Gastric polyp
Small hiatal hernia
Diverticulosis
Internal hemorrhoids
Multiple colonic polyps
Chronic Discharge Diagnosis:
Atrial fibrillation on Xarelto, osteoarthritis, CAD/CABG 1993, CHF, hyperlipidemia, GERD, COPD, sleep apnea on BIPAP, history of prostate CA with prostatectomy, chronic bilateral leg lymphedema.
Hospital Course:
89-year-old male from [facility] presented to the ED by EMS with rectal bleeding x 2 days black in color. He is on Xarelto for A-fib and hx of intermittent hematuria plan for watchman on 12/01/2025. His stated that he had a
colonoscopy done this year at [facility] and polyps were found. At ER he was AFVSS, EKG showed A.fib with PVC and new RBBB with cardiac murmur on exam, echo done and showed EF 56 % improved from 2021 EF 35-40%.
appeared volume overloaded on exam with significant lower extremity edema, proBNP is elevated at 3940 and started on IV Lasix twice daily, Troponin elevation likely related to NIMI in the setting of CHF exacerbation,Cardiology consulted and Xarelto
was held due to GI bleed. GI consulted and started on Protonix daily. EGD was done and no specific source of bleeding found (detailed below).
Discussed potentially pursuing a colonoscopy while inpatient. His stated that he had recent colonoscopy at [facility] with multiple polyps removed and was not advised to repeat colonoscopy. No report was available at that time and pt
declined colonoscopy.
Xarelto resumed on 11/13/2025 then he had multiple black stool after therefore, Xarelto was held again and pt agreed to do a colonoscopy, bowel preparation started and a colonoscopy done on 11/18/2025 which showed single (solitary) ulcer in the
distal rectum, Four 3 to 10 mm polyps in colon and Diverticulosis (detailed below) and given recent GI bleed and need to restart anticoagulation polypectomy not attempted. CTA was done and showed no evidence for active GI bleed (detailed below).
His Hb and Hct remained stable and cleared by GI and Cardio to be discharged and to resume Xarelto same day at home and to follow up with GI , Dr Higgins in the office for biopsy results and consider OP VCE to evaluate rest of small bowel.
Important Procedure:
Endoscopy 11/13/2025
- Small pills were found in the esophagus, otherwise normal.
- Z-line regular, 42 cm from the incisors.
- Small hiatal hernia.
- Congested and nodular mucosa in the gastric body and antrum.
Biopsied.
- A single 3 mm gastric polyp. Resected and retrieved. Otherwise,
normal stomach on direct/retroflexion views.
- Normal examined duodenum up to the fourth portion without any
AVMs.
- The examination was otherwise normal without any significant
findings throughout the examined upper GI tract.
Colonoscopy 11/18/2025
-Diverticulosis in the sigmoid colon, in the descending colon, in
the ascending colon and in the transverse colon.
- Four 3 to 10 mm polyps in the ascending colon, in the transverse
colon, in the descending colon and in the cecum. Resection not
attempted.
- Given recent GI bleed and need to restart anticoagulation
polypectomy not attempted.
- A single (solitary) ulcer in the distal rectum.
- Internal hemorrhoids.
- The examined portion of the ileum was normal.
- No specimens collected.
CTA of abd and pelvis 11/18/2025
1. No overt CTA evidence for active GI bleed.
2. Suspect acute uncomplicated pancolitis, likely of infectious/inflammatory etiology.
3. Partially visualized bilateral pleural effusions, left greater than right.
Discharge Plan
-
Patient Disposition: Home with Home Care
Discharge Diagnosis/Procedures: Rectal bleeding , new RBBB
Acute on Chronic anemia
Acute uncomplicated pancolitis
Bilateral pleural effusions, left greater than right.
Hyponatremia
Gastric polyp
Small hiatal hernia
Diverticulosis
Internal hemorrhoids
Multiple colonic polyps
Condition: Fair
Diet: Low Sodium and 2 Gram Sodium
Activity: As tolerated
Driving Restrictions: As prior to admission
Blood Work: CBC and BMP blood test in 5 days and to send the result to PCP
Specialty Instructions: Weigh Daily- Call MD for wt gain/loss 3 lbs overnight/5 lbs in 1 week
Instructions: GI bleed (DC)
Referrals:
Jason Irwin MD [Family Provider, Family Practice] - in less than 1 week
Dillon Archuleta DO [Active, Gastroenterology] - in one to two weeks
Additional Discharge Medication Instructions: Take the new dose of Metoprolol succinate 50 mg tablet twice daily
Stop taking Metoprolol succinate 100 mg tablet twice daily
Resume Xarelto 20mg today evening starting today 11/19/2025
Follow up with your 1st pressman on web press as as an outpatient scheduled for watchman procedure 12/01/2024 and pre procedure appt.
Follow yo with passenger screener as an outpatient for possible capsule endoscopy and for gastric biopsy results.
Prescriptions:
New
metoprolol succinate 50 mg Tablet Extended Release 24 Hr
50 mg PO BID 14 Days Qty: 24 0RF
Continued
montelukast 10 MG tablet
10 mg PO HS
Xarelto 20 MG tablet
20 mg PO QPM
Dupixent Pen 300 MG/2 ML pen injector
300 mg SC Q2W
duloxetine 30 mg capsule,delayed release(DR/EC)
30 mg PO DAILY
atorvastatin 40 mg tablet
40 mg PO QPM
lisinopril [Zestril] 2.5 mg tablet
2.5 mg PO QPM
pantoprazole [Protonix] 20 mg Tablet,Delayed Release (Dr/Ec)
20 mg PO DAILY
ferrous sulfate 325 mg (65 mg iron) Tablet
325 mg PO DAILY
folic acid 1 mg Tablet
1 mg PO DAILY
furosemide [Lasix] 20 mg Tablet
40 mg PO BID
Breztri Aerosphere 160-9-4.8 mcg/actuation Hfa Aerosol Inhaler
2 inh INHALATION R BID
Discontinued
metoprolol succinate 100 mg tablet extended release 24 hr
100 mg PO BID
Discharge Orders:
Discharge Patient (As Directed); Ordered 11/19/25
Ordered By: Brooks Patterson
Discharge Date and Time
Discharge Date/Time: 11/19/25 15:40
Print Language: TELUGU

Documented by User: Ignacio Noriega DO 11/21/25 10:58
Discharge Summary
Discharge Data
Date of Admission: 11/11/25
Date of Discharge: 11/19/25
Total time spent discharging patient (in min): 33
Discharge Plan
-
Patient Disposition: Home with Home Care
Discharge Diagnosis/Procedures: Rectal bleeding , new RBBB
Acute on Chronic anemia
Acute uncomplicated pancolitis
Bilateral pleural effusions, left greater than right.
Hyponatremia
Gastric polyp
Small hiatal hernia
Diverticulosis
Internal hemorrhoids
Multiple colonic polyps
Condition: Fair
Diet: Low Sodium and 2 Gram Sodium
Activity: As tolerated
Driving Restrictions: As prior to admission
Blood Work: CBC and BMP blood test in 5 days and to send the result to PCP
Specialty Instructions: Weigh Daily- Call MD for wt gain/loss 3 lbs overnight/5 lbs in 1 week
Instructions: GI bleed (DC)
Referrals:
Jason Irwin MD [Family Provider, Family Practice] - in less than 1 week
Dillon Archuleta DO [Active, Gastroenterology] - in one to two weeks
Additional Discharge Medication Instructions: Take the new dose of Metoprolol succinate 50 mg tablet twice daily
Stop taking Metoprolol succinate 100 mg tablet twice daily
Resume Xarelto 20mg today evening starting today 11/19/2025
Follow up with your 1st pressman on web press as as an outpatient scheduled for watchman procedure 12/01/2024 and pre procedure appt.
Follow yo with passenger screener as an outpatient for possible capsule endoscopy and for gastric biopsy results.
Prescriptions:
New
metoprolol succinate 50 mg Tablet Extended Release 24 Hr
50 mg PO BID 14 Days Qty: 24 0RF
Continued
montelukast 10 MG tablet
10 mg PO HS
Xarelto 20 MG tablet
20 mg PO QPM
Dupixent Pen 300 MG/2 ML pen injector
300 mg SC Q2W
duloxetine 30 mg capsule,delayed release(DR/EC)
30 mg PO DAILY
atorvastatin 40 mg tablet
40 mg PO QPM
lisinopril [Zestril] 2.5 mg tablet
2.5 mg PO QPM
pantoprazole [Protonix] 20 mg Tablet,Delayed Release (Dr/Ec)
20 mg PO DAILY
ferrous sulfate 325 mg (65 mg iron) Tablet
325 mg PO DAILY
folic acid 1 mg Tablet
1 mg PO DAILY
furosemide [Lasix] 20 mg Tablet
40 mg PO BID
Breztri Aerosphere 160-9-4.8 mcg/actuation Hfa Aerosol Inhaler
2 inh INHALATION R BID
Discontinued
metoprolol succinate 100 mg tablet extended release 24 hr
100 mg PO BID
Discharge Orders:
Discharge Patient (As Directed); Ordered 11/19/25
Ordered By: Brooks Patterson
Discharge Date and Time
Discharge Date/Time: 11/19/25 15:40
Print Language: TELUGU
== END 2025-11-19 15:40 | disposition home health service (06) | DRG 377 ==
LOC: 3 WEST ACU 19:30
PROVIDERS: Clinical Nurse Specialist Family Health; Emergency Medicine; Internal Medicine; Internal Medicine Gastroenterology; Specialist Research Data Abstracter/Coder; Student in an Organized Health Care Education/Training Program; ADMITTING PHYSICIAN Internal Medicine; ATTENDING PHYSICIAN Internal Medicine; CONSULT PHYSICIAN Specialist; EMERGENCY PHYSICIAN Emergency Medicine; FAMILY PHYSICIAN Family Medicine; OTHER PHYSICIAN Internal Medicine Cardiovascular Disease
PROC: 0DB68ZZ Excision of Stomach, Via Natural or Artificial Opening Endoscopic (ICD-10-PCS; 2025-11-13)
PROC: 0DB68ZX Excision of Stomach, Via Natural or Artificial Opening Endoscopic, Diagnostic (ICD-10-PCS; 2025-11-13)
PROC: 0DJD8ZZ Inspection of Lower Intestinal Tract, Via Natural or Artificial Opening Endoscopic (ICD-10-PCS; 2025-11-18)
DX: K55.21 Angiodysplasia of colon with hemorrhage (principal); I50.23 Acute on chronic systolic (congestive) heart failure; D62 Acute posthemorrhagic anemia; E87.1 Hypo-osmolality and hyponatremia; I45.2 Bifascicular block; I48.21 Permanent atrial fibrillation; I13.0 Hypertensive heart and chronic kidney disease with heart failure and stage 1 through stage 4 chronic kidney disease, or unspecified chronic kidney disease; K57.30 Diverticulosis of large intestine without perforation or abscess without bleeding; D12.0 Benign neoplasm of cecum; D12.3 Benign neoplasm of transverse colon; D12.4 Benign neoplasm of descending colon; D12.2 Benign neoplasm of ascending colon; K64.8 Other hemorrhoids; K44.9 Diaphragmatic hernia without obstruction or gangrene; K31.7 Polyp of stomach and duodenum; Z95.1 Presence of aortocoronary bypass graft; I25.10 Atherosclerotic heart disease of native coronary artery without angina pectoris; K21.9 Gastro-esophageal reflux disease without esophagitis; J44.89 Other specified chronic obstructive pulmonary disease; Z85.46 Personal history of malignant neoplasm of prostate; I89.0 Lymphedema, not elsewhere classified; Z79.01 Long term (current) use of anticoagulants; I49.3 Ventricular premature depolarization; Z87.891 Personal history of nicotine dependence; Z88.5 Allergy status to narcotic agent; E78.00 Pure hypercholesterolemia, unspecified; G47.33 Obstructive sleep apnea (adult) (pediatric); N18.9 Chronic kidney disease, unspecified; I25.5 Ischemic cardiomyopathy; Z79.899 Other long term (current) drug therapy; Z90.79 Acquired absence of other genital organ(s); Z92.3 Personal history of irradiation; Z96.643 Presence of artificial hip joint, bilateral; Z96.651 Presence of right artificial knee joint
CPT/HCPCS: 74174; 80053; 80061; 82607; 82728; 82746; 83540; 83550; 83690; 83735; 83880; 84484; 85014; 85018; 85025; 85027; 85610; 86850; 86900; 86901; 88305; 88342; 92610; 93005; 93306; 94640; 94660; 97167; 97530; 97535; Q9967